=== PATIENT | female | born 2005 | race Caucasian/White ===

== ENCOUNTER 2025-03-19 09:48 | Inpatient (IN) | payer OTHER, SELFPAY ==
--- NOTE | ~2025-03-19 | CT_ITS ---
EXAMINATION: CT abdomen pelvis w con DATE: 03/19/2025 11:53 INDICATION: Abdominal pain TECHNIQUE: Computed tomography (CT) of the abdomen and pelvis was performed without intravenous contr ast. Automated exposure control and iterative reconstruction technique were employed. The dose-length product was 366.51 mGy-cm. COMPARISON: None FINDINGS: Minimal atelectasis in the dependent left lower lobe. Heart size is normal. No pericardial or pleural effusion. Diffuse mild periportal edema. Decompressed gallbladder is unremarkable. Splenomegaly carina uring 17.1 cm. Pancreas, bilateral adrenal glands and kidneys are normal. Bladder is normal. T-shaped IUD in expected position within the anteverted uterus. Bilateral adnexa are unremarkable. No bowel o bstruction. There is subtle stranding in the fat about the tip the cecum and the base of the appendix which measures 9 mm diameter raising some suspicion for acute appendicitis. Small amount of likely p hysiologic free fluid in the cul-de-sac. No abscess or free intraperitoneal gas. No pathologically en larged abdominal or pelvic lymphadenopathy. IMPRESSION: 1. Diffuse periportal edema in the liver which could be seen with hepatitis, ascending cholangitis, p yelonephritis, heart failure and aggressive volume resuscitation. 2. Minimal stranding at the tip the cecum and base of the appendix which measures up to 8-9 mm which raises some suspicion for but is not definitive for acute appendicitis. Dr. Izaguirre discussed this a nd the above findings with Dr. Abad at 12:10 PM. 3. Nonspecific splenomegaly measuring 17.1 cm craniocaudally. 4. T-shaped IUD in expected position within the anteverted uterus. Reviewed, dictated and finalized at location A. IMPRESSION: 1. Diffuse periportal edema in the liver which could be seen with hepatitis, as cending cholangitis, pyelonephritis, heart failure and aggressive volume resusc itation. 2. Minimal stranding at the tip the cecum and base of the appendix which measur es up to 8-9 mm which raises some suspicion for but is not definitive for acute appendicitis. Dr. Izaguirre discussed this and the above findings with Dr. Abad at 12:10 PM. 3. Nonspecific splenomegaly measuring 17.1 cm craniocaudally. 4. T-shaped IUD in expected position within the anteverted uterus.
--- NOTE | ~2025-03-19 | US_ITS ---
Limited ABDOMINAL ULTRASOUND (Doppler ultrasound interrogation techniques used as needed for this exa m.) Ordering provider: Dulce Maria Abad APRN History: . jaundiced RUQ pain . Comparison: None. FINDINGS: PANCREAS: Normal echotexture and size of the visualized portion. PORTAL VEIN: Hepatopedal flow demonstrated. Portal vein measures 1.3 cm. LIVER: Normal size and echotexture. Measures 15.3 cm. No focal hepatic lesions or perihepatic fluid c ollections are identified. BILIARY DUCTS: No intra or extrahepatic biliary dilation. Common bile duct measures 3.4 mm in diamete r which is normal for patient's age. GALLBLADDER: Contracted. Normal. No stones, sludge, gallbladder wall thickening or pericholecystic fl uid. The wall thickness is 2 mm. Negative sonographic Iyer's sign. IVC: Patent. FREE FLUID: None visualized within the upper abdomen. IMPRESSION: normal limited abdominal ultrasound. Reviewed, dictated and finalized at location A.
--- NOTE | ~2025-03-19 | MR_ITS ---
EXAMINATION: MR MRCP. Con/w 3D wo ind DATE: 03/20/2025 13:12 INDICATION: Elevated liver enzymes TECHNIQUE: Magnetic resonance imaging (MRI) of the abdomen was performed without and with 12 mL Multi lion intravenous contrast. Sequences included coronal T2-weighted SS-FSE, coronal T2-weighted FS SS- FSE, coronal T2-weighted FS FIESTA, axial T2-weighted FS FIESTA, axial T2-weighted FIESTA, sagittal T 2-weighted SS-FSE, axial T1-weighted dual-echo FSPGR, axial T2-weighted SS-FSE, axial T1-weighted LAV A, axial T2-weighted STIR FSE. Thick-slab T2-weighted FRFSE-XL images were obtained for magnetic reso nance cholangiopancreatography (MRCP). Rotating maximum intensity projection 3-D reconstructions of t he volumetric data were created by the technologist. Postcontrast sequences included a time course of axial T1-weighted LAVA. COMPARISON: CT and ultrasound both dated 03/19/2025. FINDINGS: ABDOMEN MRI: None of the injected intravenous contrast is evident in the organs of the abdomen on the post contras t imaging suggesting extravasation at the site of injection. Heart size is normal. No pericardial or pleural effusion. Again seen is mild periportal edema. The fernanda hepatis and extending most prominent ly into the right hepatic lobe. No hepatic lesions identified. Gallbladder is completely decompressed . The main portal vein is at the upper limits of normal measuring up to 1.4 cm in diameter. (6 spleno megaly measuring up to 16.7 cm craniocaudal length which along with a mild dilation the main portal v ein could be due to portal venous hypertension.. Pancreas, bilateral adrenal glands and kidneys are n ormal. Visualized bowels are unremarkable. No pathologically enlarged abdominal lymphadenopathy. Mild lumbar levocurvature. Normal bone marrow signal throughout. ABDOMEN MRCP: Common bile duct is normal in caliber measuring up to 3 mm in maximal diameter and tapering smoothly in the distal duct. No choledocholithiasis. No dilation of intrahepatic biliary tree or main pancreat ic duct. IMPRESSION: 1. Nonspecific periportal edema with differential as previously detailed. 2. Nonspecific splenomegaly measuring up to 16.7 cm and borderline dilation of the main portal vein m easuring up to 1.4 cm, both findings which can be seen in setting of portal venous hypertension. Reviewed, dictated and finalized at location A. IMPRESSION: 1. Nonspecific periportal edema with differential as previously detailed. 2. Nonspecific splenomegaly measuring up to 16.7 cm and borderline dilation of the main portal vein measuring up to 1.4 cm, both findings which can be seen in setting of portal venous hypertension.
--- NOTE | ~2025-03-19 | US_ITS ---
EXAMINATION: US retroperitoneal duplex ltd DATE: 03/20/2025 17:11 INDICATION: Portal hypertension. Rule out thrombosis. TECHNIQUE: Multiple grayscale, color Doppler, and pulsed Doppler images of the splenic and portal vei ns, hepatic artery and hepatic veins were obtained. COMPARISON: None. FINDINGS: Normal directional flow with normal portal venous waveforms in the splenic, main, left and right port al veins. The main portal vein is dilated to 1.5 cm. No evident portal venous thrombosis. Normal dire ctional flow and arterial waveform with brisk systolic upstroke at the hepatic artery. Normal directi onal flow and hepatic venous waveforms in the left, right and middle hepatic veins. IMPRESSION: 1. Mildly dilated main portal vein which can be seen with portal venous hypertension. Otherwise norm al duplex Doppler study of the hepatic and portal veins with normal directional flow and waveforms an d no evident thrombosis. Reviewed, dictated and finalized at location A. IMPRESSION: 1. Mildly dilated main portal vein which can be seen with portal venous hypert ension. Otherwise normal duplex Doppler study of the hepatic and portal veins w ith normal directional flow and waveforms and no evident thrombosis.
--- OUTSIDE RECORDS SUMMARY | 2025-03-19 09:53 | XMS_ITS | Encounter Summary ---
Author Organization [facility] Address [address] [place] [address] Care Team Providers Care Superintendent Plant Name Role Phone Prabha Jaime MD Primary Care Provider [phone] Reason for Visit * Reason Onset Date Comments Results 03/20/2020 Please give mom a call with lab results. Encounter Details Date Type Department Care Team (Late st Contact Info) Description 03/20/[address] 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 No / Unsure 03/18/2020 9:56 AM CDT documented as of this encounter Plan of Treatment Not on file documented as of this encounter Visit Diagnoses Not on filedocumented in this encounter Care Teams Superintendent Plant Relationship Specialty Start Date End Date Prabha Jaime MD [address] [id number] PCP - General Pediatrics 08/18/12 documented as of this encounter
--- OUTSIDE RECORDS SUMMARY | 2025-03-19 09:53 | XMS_ITS | Clinical Summary ---
Author Organization [facility] Address [address] [place] [address] Care Team Providers Care Potato Pancake Frier Name Role Phone Prabha Jaime MD Primary Care Provider [phone] Source Comments [facility],non-owned Affiliates and Associated Physician Practices is amultiple site organization consisting of ambulatory clinics and hospital sitesin [place], [place], [place] and [place]. This disclosure is being madepursuant to the Care Everywhere program and may not contain all information available regarding this patient. Last updated 18.[facility] Allergies No known active allergies Medications * Be aware that medications may not be up to date on this document. Alwaysverify current medications with the patient. No known medications Active Problems Problem Noted Date Diagnosed Date Hyperthyroidism 08/19/2012 Overview (07/04/2013): She developed congestion and malaise in mid-07/18, then otalgia. On 08/09/12, her property technician found acute otitis media and incidentally an enlarged thyroid, with free T4 2.5 (nl 0.9-1.6) and TSH <0.01. We saw her shortly after and suggested observation, as she was asymptomatic. However, on 09/18/12, her T4 was 13.9, T3 312, and TSH <0.05, thyroglobulin and thyroid peroxidase antibodies markedly elevated, and resting heart rate at her PCP's office was 120, so we recommended methimazole 10 mg once daily, but reduced the dose to 5 mg once daily. Thyroid levels were normal on this dose in 01/16. Assessment & Plan (04/20/2023 12:39 PM CDT): History of autoimmune hyperthyroidism, in remission (stopped methimazole February 02, 2015), remains clinically euthyroid. No other comorbid autoimmune conditions. 1. Orders Placed This Encounter TSH Order Specific Question: Release to patient Answer: Immediate T4 TOTAL Order Specific Question: Release to patient Answer: Immediate 2. Follow up by telephone (family telephone: [phone]) with laboratory results 3. Reviewed signs/symptoms of hyperthyroidism 4. Annual serum TSH and T4 levels 5. Return appointment in 1-2 years. Assessment & Plan (03/23/2022 12:21 PM CDT): History of Graves disease, in remission (February 02, 2015), clinically euthyroid. No other comorbid autoimmune conditions. 1. Orders Placed This Encounter TSH Order Specific Question: Release to patient Answer: Immediate T4 TOTAL Order Specific Question: Release to patient Answer: Immediate 2. Follow up by telephone (family telephone: [phone]) with laboratory results 3. Reviewed signs/symptoms of Graves disease 4. Reviewed risks of developing other autoimmune diseases (including type 1 diabetes mellitus) 5. Expectant observation 6. Return visit in one year, sooner if problems develop. Assessment & Plan (07/04/2013 1:47 PM CDT): 1) continue Methimazole 5mg daily 2) check thyroid function today 3) return in [address] 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 Gender Identity Not on file Sexual Orientation Not on file Last Filed Vital Signs Vital Sign Reading Time Taken Comments Blood Pressure 100/72 04/19/2023 1:56 PM CDT Pulse 86 04/19/2023 1:56 PM CDT Temperature - - Respiratory Rate 16 04/19/2023 1:56 PM CDT Oxygen Saturation - - Inhaled Oxygen Concentration - - Weight 58.9 kg (129 lb 13.6 oz) 04/19/2023 1:56 PM CDT Height 163.7 cm (5' 4.45) 04/19/2023 1:56 PM CD T Body Mass Index 21.98 04/19/2023 1:56 PM CDT Plan of Treatment Health Maintenance Due Date Last Done Comments HIV SCREENING 2018 HPV VACCINE (1 - 3-dose series) 2018 MENINGOCOCCAL (Group B) VACCINE SHARED DECISION-MAKING (1 of 2 - Standard) 2019 HEPATITIS C SCREENING 06/21/2021 DTAP/TDAP/TD VACCINES (1 - Tdap) 2022 HEPATITIS B VACCINE (1 of 3 - 19+ 3-dose series) 2022 CHLAMYDIA/GONORRHEA SCREENING 10/03/2022 10/03/2021 COVID-19 VACCINE ( - season) 2024 08/02/2021, 12/22/2020, 12/01/2020 PAP SMEAR 2024 DEPRESSION SCREENING 09/06/2024 03/23/2022 INFLUENZA VACCINE (#1) 2025 0, 07/14/2019, 06/24/2018, Additional history exists ZOSTER VACCINE (1 of 2) 2053 HIB VACCINE Aged Out No longer eligi ble based on patient's age to complete this topic MENINGOCOCCAL GROUPS A/C/Y/W VACCINE Aged Out No longer eligible based on patient's age to complete this topic PNEUMOCOCCAL VACCINE Aged Out No long er eligible based on patient's age to complete this topic Procedures Procedure Name Priority Date/Time Associated Diagnosis Comments CHLAMYDIA + GC + TRICH DNA AMPL Routine 10/03/2021 2:18 PM TWISTING DEPARTMENT END FINDER Encounter for insertion of mirena IUD from Last 3 Months or Most Recently Relevant to Health Maintenance Results * CHLAMYDIA + GC + TRICH DNA AMPL (10/03/2021 2:18 PM TWISTING DEPARTMENT END FINDER) Chlamydia trachomatis NILSON Negative Negative [facility] ACCOUNT B[facility] GC DNA Probe Negative Negative [facility] Trichomonas vaginalis by NILSON Negative Negative [facility]OUNT [facility] Microbiology ENTIRE ENDOCERVIX / Unknown 10/03/2021 2:18 PM TWISTING DEPARTMENT END FINDER 10/03/2021 Narrative Resulting Agency Comment Lab Testing performed at: [address] [id number] Lois Spicer MD LAB - MICROBIOLOGY ORDERABLES Final Result [facility] ACCOUNT BILL [id number] [place] [address] from Last 3 Months or Most Recently Relevant to Health Maintenance Insurance [facility] Care Teams Potato Pancake Frier Relationship Specialty Start Date End Date Prabha Jaime MD [address] [facility] [address] [place] [address] PCP - General Pediatrics 08/18/12
[2025-03-19 09:55] VITALS: BP 132/81; PULSE 97; RESP 16; TEMP 36.8; O2SAT 100
--- NOTE | 2025-03-19 10:17 | ED_ITS ---
HPI - General Adult General Chief complaint: Abdominal Pain <Dulce Maria Patterson January, Last Filed: 03/19/25 16:22> Stated complaint: fatigue, yellow color, RUQ pain <Dulce Maria Patterson January, Last Filed: 03/19/25 16:22> Time Seen by Provider: 03/19/25 09:51 <Dulce Maria Patterson January, - Last Filed: 03/19/25 16:22> History of Present Illness HPI narrative: Champ Asencio is a 19-year-old female who presents with reports of feeling increased fatigue it and noticed some yellowing to her skin over the past 3-4 months and some intermittent right upper quadrant pain for the past month. She has not noticed anything that brings on the pain. She states that it kind of comes out of nowhere she has had some nausea but no vomiting. She states that when the pain comes on it will last all day but then the next day she feels okay. She reports that she has never really had normal bowel movements are usually just soft. <Dulce Maria Patterson January, - Last Filed: 03/19/25 16:22> Related Data Allergies/adverse reactions: Allergies Allergy/AdvReac Type Severity Reaction Status Date / Time No Known Allergies Allergy Verified 03/19/25 10:07 <Dulce Maria Patterson January, Last Filed: 03/19/25 16:22> Review of Systems 2 Review of Systems: All systems reviewed & are unremarkable except as noted in HPI and below <Dulce Maria Patterson January, - Last Filed: 03/19/25 16:22> Exam 2 Narrative: GENERAL: Well-appearing, well-nourished, and in no acute distress. HEAD: Normocephalic, atraumatic. EYES: PERRLA and EOMI. + Icteric ENT: Nares clear, no rhinorrhea or epistaxis. Mucous membranes moist. Oropharynx without tonsillar hypertrophy exudate or other lesions. NECK: Supple. No adenopathy or masses. No carotid bruits or JVD CHEST: Clear to auscultation. No respiratory distress. No wheezes rales or rhonchi HEART: Regular rate and rhythm. No murmur heard. Normal peripheral pulses. ABDOMEN: Soft, nondistended, normal active bowel sounds. + pain to the RUQ with palpation and some mild pain to the generalized abdomen. EXTREMITIES: Normal range of motion. No edema. SKIN: Warm, dry, no rash. NEURO: No focal deficits. Alert and oriented x3. PSYCH: Normal mood and affect. <Dulce Maria Abad APRN - Last Filed: 03/19/25 16:22> Course GOLF CART ATTENDANT/PA Physician Supervision I agree with midlevel documentation; I performed the medical decision making component of this evaluation. <Minerva Noble MD - Last Filed: 03/19/25 16:28> Vital Signs Vital signs: Vital Signs Temperature 98.3 F 03/19/25 09:55 Pulse Rate 97 03/19/25 09:55 Respiratory Rate 16 03/19/25 09:55 Blood Pressure 132/81 03/19/25 09:55 Pulse Oximetry 100 03/19/25 09:55 Oxygen Delivery Room Air 03/19/25 09:55 Temperature 98.3 F 03/19/25 09:55 Pulse Rate 79 03/19/25 15:00 Respiratory Rate 16 03/19/25 15:00 Blood Pressure 114/64 03/19/25 15:00 Pulse Oximetry 100 03/19/25 15:00 Oxygen Delivery Room Air 03/19/25 09:55 <Dulce Maria Abad MARKET RELATIONSHIP MANAGER - Last Filed: 03/19/25 16:22> Vital Signs Temperature 98.3 F 03/19/25 09:55 Pulse Rate 97 03/19/25 09:55 Respiratory Rate 16 03/19/25 09:55 Blood Pressure 132/81 03/19/25 09:55 Pulse Oximetry 100 03/19/25 09:55 Oxygen Delivery Room Air 03/19/25 09:55 Temperature 98.3 F 03/19/25 09:55 Pulse Rate 79 03/19/25 15:00 Respiratory Rate 16 03/19/25 15:00 Blood Pressure 114/64 03/19/25 15:00 Pulse Oximetry 100 03/19/25 15:00 Oxygen Delivery Room Air 03/19/25 09:55 <Minerva Noble MD - Last Filed: 03/19/25 16:28> Medical Decision Making MDM Narrative Medical decision making narrative: 19 y/o with reports of noticing some yellowing of her skin over the past 2-3 months and now having some RUQ pain intermittently over the past month. Denies any pain currently Exam is consistent with scleral icterus, + RUQ pain with palpation and mild generalized abdominal pain Concern for : cholelithiasis / obstructing cholelithiasis / malignancy / cholecystitis / plan to check labs / CT and US CBC-white blood cells 3.8, RBCs 3.039 hemoglobin 10, hematocrit 30.5, platelets 127-pancytopenia CMP-bicarb 20, calcium 7.8, bilirubin 6.6, AST 926, ALT 564, alk-phos 140, total protein 10.3, albumin 3.2 Lipase-309 UA-positive bilirubin 2+ Urine preg-negative CT abd/pelv - 1. Diffuse periportal edema in the liver which could be seen with hepatitis, ascending cholangitis, pyelonephritis, heart failure and aggressive volume resuscitation. 2. Minimal stranding at the tip the cecum and base of the appendix which measures up to 8-9 mm which raises some suspicion for but is not definitive for acute appendicitis. Dr. Izaguirre discussed this and the above findings with Dr. Abad at 12:10 PM. 3. Nonspecific splenomegaly measuring 17.1 cm craniocaudally. 4. T-shaped IUD in expected position within the anteverted uterus. CT US- normal limited abdominal ultrasound. normal limited abdominal ultrasound. Collaborated with Dr. Noble who recommends adding on Hepatic panel and consult with GI Based on the presentation and the lab work and a CT finding was consulted with extrusion press adjuster specialist Dr. Tripathi who recommends MRCP for further evaluation of the cause of these findings. In the setting of patient still having some right upper quadrant pain and the abnormal lab values plan to admit for the MRCP to the hospitalist with Dr. Tripathi for consultation he states he will see the patient tomorrow and in- patient Talked with Hospitalist Stephie who accepts pt for admission and plans to start empirical treatment for ascending cholangitis with IV Zosyn Patient and her family updated on findings and plan of care and denied have any further questions or concerns at this time <Dulce Maria Abad, MARKET RELATIONSHIP MANAGER - Last Filed: 03/19/25 16:22> Vital Signs Vital Signs: Vital Signs Temperature 98.3 F 03/19/25 09:55 Pulse Rate 97 03/19/25 09:55 Respiratory Rate 16 03/19/25 09:55 Blood Pressure 132/81 03/19/25 09:55 Pulse Oximetry 100 03/19/25 09:55 Oxygen Delivery Room Air 03/19/25 09:55 Temperature 98.3 F 03/19/25 09:55 Pulse Rate 79 03/19/25 15:00 Respiratory Rate 16 03/19/25 15:00 Blood Pressure 114/64 03/19/25 15:00 Pulse Oximetry 100 03/19/25 15:00 Oxygen Delivery Room Air 03/19/25 09:55 Vitals reviewed by me <Dulce Maria Abad APRN - Last Filed: 03/19/25 16:22> Vital Signs Temperature 98.3 F 03/19/25 09:55 Pulse Rate 97 03/19/25 09:55 Respiratory Rate 16 03/19/25 09:55 Blood Pressure 132/81 03/19/25 09:55 Pulse Oximetry 100 03/19/25 09:55 Oxygen Delivery Room Air 03/19/25 09:55 Temperature 98.3 F 03/19/25 09:55 Pulse Rate 79 03/19/25 15:00 Respiratory Rate 16 03/19/25 15:00 Blood Pressure 114/64 03/19/25 15:00 Pulse Oximetry 100 03/19/25 15:00 Oxygen Delivery Room Air 03/19/25 09:55 <Minerva Noble MD - Last Filed: 03/19/25 16:28> Lab Data Lab results reviewed: Yes I reviewed the patient's lab results. <Dulce Maria Abad APRN - Last Filed: 03/19/25 16:22> Result diagrams: 03/19/25 10:19 03/19/25 10:19 <Dulce Maria Abad APRN - Last Filed: 03/19/25 16:22> Labs: Lab Results 03/19/25 03/19/25 03/19/25 Range/Units 10:15 10:16 10:18 WBC (4.5-10.0) K/mm3 RBC (4.2-5.4) M/mm3 Hgb (12.0-15.0) g/dL Hct (37.0-47.0) % MCV (80-100) fl MCH (26-34) pg MCHC (32-36) g/dl RDW (11.5-14.5) % Plt Count (150-375) k/mm3 MPV (7.4-10.4) fl Immature Gran % (Auto) (0-0.5) % Neut % (Auto) (45.5-73.1) % Lymph % (Auto) (18.3-44.2) % [place] % (Auto) (2.6-8.5) % Eos % (Auto) (0-4.4) % Baso % (Auto) (0.2-1.2) % Lymph # (Auto) (0.9-3.2) K/mm3 Childress # (Auto) (0.1-0.6) K/mm3 Eos # (Auto) (0-0.3) K/mm3 Baso # (Auto) (0.0-0.1) K/mm3 Abs Immat Gran (auto) (0.00-0.031) K/mm3 Absolute Neuts (auto) (1.3-6.7) K/mm3 Absolute Nucleated RBC (0.0-0.012) K/mm3 Nucleated RBC % (0.0-0.2) % Sodium (137-145) mmol/L Potassium (3.4-5.0) mmol/L Chloride (98-107) mmol/L Carbon Dioxide (22-30) mmol/L Anion Gap (4-12) mmol/L BUN (7-17) mg/dL Creatinine (0.7-1.0) mg/dL Estim Creat Clear Calc ml/min Estimated GFR (59 - ) Glucose (65-110) mg/dL Calcium (8.4-10.2) mg/dL Total Bilirubin (0.2-1.3) mg/dL AST (14-36) U/L ALT (6-35) U/L Alkaline Phosphatase (38-126) U/L Total Protein (6.3-8.2) g/dL Albumin (3.5-5.1) g/dL Lipase (23-300) U/L Urine Color Dark yellow (Yellow) Urine Appearance Clear (Clear) Urine pH 5.0 (5.0-9.0) Ur Specific [place] 1.017 (1.001-1.035) Urine Protein Negative (Negative) mg/dL Urine Glucose (UA) Negative (Negative) mg/dL Urine Ketones Negative (Negative) mg/dL Ur Blood (Man) Negative (Negative) Urine Nitrate Negative (Negative) Urine Bilirubin 2+ H (Negative) Urine Urobilinogen 1.0 (<2.0) mg/dL Leukocyte Esterase Rfl Negative (Negative) CK/UL POC Urine HCG, Qual Negative (Negative) Hepatitis A IgM Ab Negative (Negative) Hep Bs Antigen Negative (Negative) Hep B Core IgM Ab Negative (Negative) Hepatitis C Ab Screen Negative (Negative) 03/19/25 Range/Units 10:19 WBC 3.8 L (4.5-10.0) K/mm3 RBC 3.03 L (4.2-5.4) M/mm3 Hgb 10.0 L (12.0-15.0) g/dL Hct 30.5 L (37.0-47.0) % MCV 100.7 H (80-100) fl MCH 33.0 (26-34) pg MCHC 32.8 (32-36) g/dl RDW 16.1 H (11.5-14.5) % Plt Count 127 L (150-375) k/mm3 MPV 10.1 (7.4-10.4) fl Immature Gran % (Auto) 0.3 (0-0.5) % Neut % (Auto) 54.6 (45.5-73.1) % Lymph % (Auto) 25.7 (18.3-44.2) % Childress % (Auto) 8.5 (2.6-8.5) % Eos % (Auto) 9.8 H (0-4.4) % Baso % (Auto) 1.1 (0.2-1.2) % Lymph # (Auto) 0.97 (0.9-3.2) K/mm3 Childress # (Auto) 0.3 (0.1-0.6) K/mm3 Eos # (Auto) 0.4 H (0-0.3) K/mm3 Baso # (Auto) 0.0 (0.0-0.1) K/mm3 Abs Immat Gran (auto) 0.01 (0.00-0.031) K/mm3 Absolute Neuts (auto) 2.1 (1.3-6.7) K/mm3 Absolute Nucleated RBC 0.000 (0.0-0.012) K/mm3 Nucleated RBC % 0.0 (0.0-0.2) % Sodium 138 (137-145) mmol/L Potassium 3.9 (3.4-5.0) mmol/L Chloride 111 H (98-107) mmol/L Carbon Dioxide 20 L (22-30) mmol/L Anion Gap 7 (4-12) mmol/L BUN 8 (7-17) mg/dL Creatinine 0.65 L (0.7-1.0) mg/dL Estim Creat Clear Calc 101 ml/min Estimated GFR > 60 (59 - ) Glucose 107 (65-110) mg/dL Calcium 7.8 L (8.4-10.2) mg/dL Total Bilirubin 6.6 H (0.2-1.3) mg/dL AST 926 H (14-36) U/L ALT 564 H (6-35) U/L Alkaline Phosphatase 140 H (38-126) U/L Total Protein 10.3 H (6.3-8.2) g/dL Albumin 3.2 L (3.5-5.1) g/dL Lipase 309 H (23-300) U/L Urine Color (Yellow) Urine Appearance (Clear) Urine pH (5.0-9.0) Ur Specific [place] (1.001-1.035) Urine Protein (Negative) mg/dL Urine Glucose (UA) (Negative) mg/dL Urine Ketones (Negative) mg/dL Ur Blood (Man) (Negative) Urine Nitrate (Negative) Urine Bilirubin (Negative) Urine Urobilinogen (<2.0) mg/dL Leukocyte Esterase Rfl (Negative) CK/UL POC Urine HCG, Qual (Negative) Hepatitis A IgM Ab (Negative) Hep Bs Antigen (Negative) Hep B Core IgM Ab (Negative) Hepatitis C Ab Screen (Negative) <Dulce Maria Abad, MARKET RELATIONSHIP MANAGER - Last Filed: 03/19/25 16:22> Lab Results 03/19/25 03/19/25 03/19/25 Range/Units 10:15 10:16 10:18 WBC (4.5-10.0) K/mm3 RBC (4.2-5.4) M/mm3 Hgb (12.0-15.0) g/dL Hct (37.0-47.0) % MCV (80-100) fl MCH (26-34) pg MCHC (32-36) g/dl RDW (11.5-14.5) % Plt Count (150-375) k/mm3 MPV (7.4-10.4) fl Immature Gran % (Auto) (0-0.5) % Neut % (Auto) (45.5-73.1) % Lymph % (Auto) (18.3-44.2) % Childress % (Auto) (2.6-8.5) % Eos % (Auto) (0-4.4) % Baso % (Auto) (0.2-1.2) % Lymph # (Auto) (0.9-3.2) K/mm3 [place] # (Auto) (0.1-0.6) K/mm3 Eos # (Auto) (0-0.3) K/mm3 Baso # (Auto) (0.0-0.1) K/mm3 Abs Immat Gran (auto) (0.00-0.031) K/mm3 Absolute Neuts (auto) (1.3-6.7) K/mm3 Absolute Nucleated RBC (0.0-0.012) K/mm3 Nucleated RBC % (0.0-0.2) % Sodium (137-145) mmol/L Potassium (3.4-5.0) mmol/L Chloride (98-107) mmol/L Carbon Dioxide (22-30) mmol/L Anion Gap (4-12) mmol/L BUN (7-17) mg/dL Creatinine (0.7-1.0) mg/dL Estim Creat Clear Calc ml/min Estimated GFR (59 - ) Glucose (65-110) mg/dL Calcium (8.4-10.2) mg/dL Total Bilirubin (0.2-1.3) mg/dL AST (14-36) U/L ALT (6-35) U/L Alkaline Phosphatase (38-126) U/L Total Protein (6.3-8.2) g/dL Albumin (3.5-5.1) g/dL Lipase (23-300) U/L Urine Color Dark yellow (Yellow) Urine Appearance Clear (Clear) Urine pH 5.0 (5.0-9.0) Ur Specific [place] 1.017 (1.001-1.035) Urine Protein Negative (Negative) mg/dL Urine Glucose (UA) Negative (Negative) mg/dL Urine Ketones Negative (Negative) mg/dL Ur Blood (Man) Negative (Negative) Urine Nitrate Negative (Negative) Urine Bilirubin 2+ H (Negative) Urine Urobilinogen 1.0 (<2.0) mg/dL Leukocyte Esterase Rfl Negative (Negative) CK/UL POC Urine HCG, Qual Negative (Negative) Hepatitis A IgM Ab Negative (Negative) Hep Bs Antigen Negative (Negative) Hep B Core IgM Ab Negative (Negative) Hepatitis C Ab Screen Negative (Negative) 03/19/25 Range/Units 10:19 WBC 3.8 L (4.5-10.0) K/mm3 RBC 3.03 L (4.2-5.4) M/mm3 Hgb 10.0 L (12.0-15.0) g/dL Hct 30.5 L (37.0-47.0) % MCV 100.7 H (80-100) fl MCH 33.0 (26-34) pg MCHC 32.8 (32-36) g/dl RDW 16.1 H (11.5-14.5) % Plt Count 127 L (150-375) k/mm3 MPV 10.1 (7.4-10.4) fl Immature Gran % (Auto) 0.3 (0-0.5) % Neut % (Auto) 54.6 (45.5-73.1) % Lymph % (Auto) 25.7 (18.3-44.2) % [place] % (Auto) 8.5 (2.6-8.5) % Eos % (Auto) 9.8 H (0-4.4) % Baso % (Auto) 1.1 (0.2-1.2) % Lymph # (Auto) 0.97 (0.9-3.2) K/mm3 [place] # (Auto) 0.3 (0.1-0.6) K/mm3 Eos # (Auto) 0.4 H (0-0.3) K/mm3 Baso # (Auto) 0.0 (0.0-0.1) K/mm3 Abs Immat Gran (auto) 0.01 (0.00-0.031) K/mm3 Absolute Neuts (auto) 2.1 (1.3-6.7) K/mm3 Absolute Nucleated RBC 0.000 (0.0-0.012) K/mm3 Nucleated RBC % 0.0 (0.0-0.2) % Sodium 138 (137-145) mmol/L Potassium 3.9 (3.4-5.0) mmol/L Chloride 111 H (98-107) mmol/L Carbon Dioxide 20 L (22-30) mmol/L Anion Gap 7 (4-12) mmol/L BUN 8 (7-17) mg/dL Creatinine 0.65 L (0.7-1.0) mg/dL Estim Creat Clear Calc 101 ml/min Estimated GFR > 60 (59 - ) Glucose 107 (65-110) mg/dL Calcium 7.8 L (8.4-10.2) mg/dL Total Bilirubin 6.6 H (0.2-1.3) mg/dL AST 926 H (14-36) U/L ALT 564 H (6-35) U/L Alkaline Phosphatase 140 H (38-126) U/L Total Protein 10.3 H (6.3-8.2) g/dL Albumin 3.2 L (3.5-5.1) g/dL Lipase 309 H (23-300) U/L Urine Color (Yellow) Urine Appearance (Clear) Urine pH (5.0-9.0) Ur Specific [place] (1.001-1.035) Urine Protein (Negative) mg/dL Urine Glucose (UA) (Negative) mg/dL Urine Ketones (Negative) mg/dL Ur Blood (Man) (Negative) Urine Nitrate (Negative) Urine Bilirubin (Negative) Urine Urobilinogen (<2.0) mg/dL Leukocyte Esterase Rfl (Negative) CK/UL POC Urine HCG, Qual (Negative) Hepatitis A IgM Ab (Negative) Hep Bs Antigen (Negative) Hep B Core IgM Ab (Negative) Hepatitis C Ab Screen (Negative) <Minerva Noble MD - Last Filed: 03/19/25 16:28> Imaging Data Radiologist's impression: Impressions Abdomen/Pelvis CT 03/19/25 12:04 IMPRESSION: 1. Diffuse periportal edema in the liver which could be seen with hepatitis, ascending cholangitis, pyelonephritis, heart failure and aggressive volume resuscitation. 2. Minimal stranding at the tip the cecum and base of the appendix which measures up to 8-9 mm which raises some suspicion for but is not definitive for acute appendicitis. Dr. Izaguirre discussed this and the above findings with Dr. Abad at 12:10 PM. 3. Nonspecific splenomegaly measuring 17.1 cm craniocaudally. 4. T-shaped IUD in expected position within the anteverted uterus. Abdomen Ultrasound 03/19/25 12:32 IMPRESSION: normal limited abdominal ultrasound. <Dulce Maria Abad APRN - Last Filed: 03/19/25 16:22> Discharge Plan Discharge Clinical Impression: Elevated liver enzymes, Elevated bilirubin, Pancytopenia <Dulce Maria Abad APRN - Last Filed: 03/19/25 16:22> Patient Disposition: Still a Patient <Dulce Maria Abad APRN - Last Filed: 03/19/25 16:22> Condition: Stable <Dulce Maria Abad APRN - Last Filed: 03/19/25 16:22> Time of Disposition: 16:21 <Dulce Maria Abad APRN - Last Filed: 03/19/25 16:22> 16:21 <Minerva Noble MD - Last Filed: 03/19/25 16:28>
[2025-03-19 10:24] LABS: BEDSIDEPREGUCG Negative (Negative)
[2025-03-19 10:28] LABS: Hematocrit 30.5 % (37.0-47.0); Hemoglobin 10.0 g/dL (12.0-15.0); Immature Granulocyte Percent A 0.3 % (0-0.5); Lymphocytes Absolute Auto 0.97 K/mm3 (0.9-3.2); Mean Corpuscular HGB Conc 32.8 g/dl (32-36); Mean Corpuscular Hemoglobin 33.0 pg (26-34); Mean Corpuscular Volume 100.7 fl (80-100); Nucleated Red Blood Cells Absolute Auto 0.000 K/mm3 (0.0-0.012); Nucleated Red Blood Cells Perc 0.0 % (0.0-0.2); Platelet Count Result 127 k/mm3 (150-375); Red Blood Count 3.03 M/mm3 (4.2-5.4); White Blood Count 3.8 K/mm3 (4.5-10.0)
[2025-03-19 10:30] LABS: Add Urine Microscopic? YES; Appearance Urine Clear (Clear); Glucose Urine UA Negative (Negative); Leukocyte Esterase Ur Negative LEU/UL (Negative); Nitrate Urine Negative (Negative); Specific Grav Ur 1.017 (1.001-1.035)
--- OUTSIDE RECORDS SUMMARY | 2025-03-19 10:42 | XMS_ITS | Clinical Summary ---
Author Organization [facility] Address [address] [facility] [place] [address] Care Team Providers Care Studio Couch Frame Builder Name Role Phone Prabha Jaime MD Primary Care Provider [phone] Source Comments [facility],non-owned Affiliates and Associated Physician Practices is amultiple site organization consisting of ambulatory clinics and hospital sitesin [place], [place], [place] and [place]. This disclosure is being madepursuant to the Care Everywhere program and may not contain all information available regarding this patient. Last updated 18.[facility] [employer] Allergies No known active allergies Medications * Be aware that medications may not be up to date on this document. Alwaysverify current medications with the patient. No known medications Active Problems Problem Noted Date Diagnosed Date Hyperthyroidism 08/19/2012 Overview (07/04/2013): She developed congestion and malaise in mid-07/18, then otalgia. On 08/09/12, her bull wheel worker found acute otitis media and incidentally an [...] 2. Follow up by telephone (family telephone: [phone]) with laboratory results 3. Reviewed signs/symptoms of [...] 2. Follow up by telephone (family telephone: [phone]) with laboratory results 3. Reviewed signs/symptoms of [...] on file Legal Sex Female 1:49 PM DIESEL LOCOMOTIVE ENGINEER Gender Identity Not on file Sexual [...] TRICH DNA AMPL Routine 10/03/2021 2:18 PM DIESEL LOCOMOTIVE ENGINEER Encounter for insertion of mirena IUD from Last 3 Months or Most Recently Relevant to Health Maintenance Results * CHLAMYDIA + GC + TRICH DNA AMPL (10/03/2021 2:18 PM DIESEL LOCOMOTIVE ENGINEER) Chlamydia trachomatis NILSON Negative Negative [facility] ACCOUNT BILL GC DNA Probe Negative Negative [facility] ACCOUNT BILL Trichomonas vaginalis by NILSON Negative Negative [facility] ACCOUNT BILL Microbiology ENTIRE ENDOCERVIX / Unknown 10/03/2021 2:18 PM DIESEL LOCOMOTIVE ENGINEER 10/03/2021 Narrative Resulting Agency Comment Lab Testing performed at: [address] [id number] Lois Spicer MD LAB - MICROBIOLOGY ORDERABLES Final Result [facility] ACCOUNT BILL [address] [place] [address] from Last 3 Months or Most Recently Relevant to Health Maintenance Insurance [facility] Care Teams Studio Couch Frame Builder Relationship Specialty Start Date End Date Prabha Jaime MD [address] [facility] [address] [place] [address] PCP - General Pediatrics 08/18/12
--- OUTSIDE RECORDS SUMMARY | 2025-03-19 10:42 | XMS_ITS | Encounter Summary ---
Author Organization [facility] Address [address] [facility] [place] [address] Care Team Providers Care Auto Rental Clerk Name Role Phone Prabha Jaime MD Primary Care Provider [phone] Reason for Visit * Reason Onset Date Comments Results 03/20/2020 Please give mom a call with lab results. Encounter Details Date Type Department Care Team (Late st Contact Info) Description 03/20/[address] [facility] - Endocrinology [address] [place] [id number] Gabriel Johnson MD [address] [place] [phone] Results (Please give mom a call with lab results.) Social History Tobacco Use Types Packs/Day Years Used Date Smoking Tobacco: Never Smokeless Tobacco: Never Alcohol Use Standard Drinks/Week Comments Not Asked 0 (1 standard drink = 0.6 oz pur e alcohol) Comments No Sex and Gender Information Value Date Recorded Sex Assigned at Not on file Legal Sex Female 1:49 PM INTELLIGENCE APPLICATIONS Gender Identity Not on file Sexual Orientation [...] on filedocumented in this encounter Care Teams Auto Rental Clerk Relationship Specialty Start Date End Date Prabha Jaime MD [address] [id number] PCP - General Pediatrics 08/18/12 documented as of this encounter
[2025-03-19 11:21] LABS: Alanine Aminotransferase 564 U/L (6-35); Albumin Level 3.2 g/dL (3.5-5.1); Alkaline Phosphatase 140 U/L (38-126); Anion Gap 7 mmol/L (4-12); Bilirubin,Total 6.6 mg/dL (0.2-1.3); Blood Urea Nitrogen 8 mg/dL (7-17); Calcium 7.8 mg/dL (8.4-10.2); Carbon Dioxide 20 mmol/L (22-30); Chloride 111 mmol/L (98-107); Estimated CRCL calculation 101 ml/min; Estimated Glomerular Filt Rate > 60; Glucose 107 mg/dL (65-110); Lipase 309 U/L (23-300); Potassium 3.9 mmol/L (3.4-5.0); Sodium 138 mmol/L (137-145); Total Protein 10.3 g/dL (6.3-8.2)
[2025-03-19 12:10] LABS: Aspartate Amino Transferase 926 U/L (14-36)
[2025-03-19 13:00] VITALS: BP 112/68; PULSE 80; RESP 16; O2SAT 100
--- NOTE | 2025-03-19 14:06 | P.HP_ITS ---
H&P: HPI History of Present Illness Date/Time: 03/19/25 14:06 Chief Complaint: Jaundice, Abdominal Pain Narrative: 19 y/o F with no significant PMH presents here with skin changes and abdominal pain. The patient presents here from home for further evaluation of yellowing of the skin and abdominal pain. She reports she noted that she has had skin changes and changes to her or sclera coloring over the last 3 to 4 months. Patient then developed intermittent right upper quadrant abdominal pain in the last month. This is accompanied by fatigue and nausea without vomiting. She describes the abdominal pain as sharp, upper right abdominal pain, radiation into her lower abdomen, intermittent with episodes lasting around 5 minutes, and no modifying factors patient is aware of. Has been taking Advil for the pain. She denies accompanying constipation, diarrhea, fever, chills, abdominal bloating. Denies history of IVDU or international travel. Initial VS at presentation: 98.3? F, HR 97, R 16, 132/81, and 100% on RA. ED workup showed: WBC 3.8, hemoglobin 10.0, platelet count 127, creatinine 0.65 and GFR >60, total bilirubin 6.6, AST 926, ALT 964, alk-phos 140, lipase 309, UA showed 2+ bilirubin otherwise unremarkable. CT showed diffuse periportal edema the liver which could be seen with hepatitis/ascending cholangitis/pyelonephritis/heart failure and aggressive volume resuscitation, minimal stranding at the tip of the cecum base of the appendix which raises some suspicion for acute appendicitis, nonspecific splenomegaly measuring 17.1 cm, and T shaped IUD in expected position. Abdominal US showed no stones/sludge/gallbladder thickening and negative Iyer sign. Review of Systems Review of Systems: All systems reviewed & are unremarkable except as noted in HPI and below [facility] Past Medical History Medical History (Updated 03/19/25 @ 21:29 by Stephie Sweeney APRN) GERD (gastroesophageal reflux disease) Anxiety ADHD Hyperthyroidism Social History Social History Smoking status: Never smoker Alcohol intake: never Substance use: never Do You Feel Safe in your Home?: Yes Lack of Transportation: No Lack of Food: Never True Current Housing: I Have Housing Concerned About Future Housing: No Difficulty Paying Gas/Electric Bills: No Difficulty Paying for Meds: No Currently Unemployed: No Education: High School Diploma/GED Difficulty w/ Childcare or Family Care: No Spiritual care concerns: No Meds Home Medications and Allergies Home Medications ?Medication ?Instructions ?Recorded ?Confirmed ?Type No Home Medications 03/19/25 03/19/25 History Allergies Allergy/AdvReac Type Severity Reaction Status Date / Time No Known Allergies Allergy Verified 03/19/25 10:07 Vital Signs Vital Signs - 24 hr 03/19/25 09:55 Temperature 98.3 F Pulse Rate 97 Respiratory Rate 16 Blood Pressure 132/81 Pulse Oximetry 100 Oxygen Delivery Room Air Exam Const: General: comfortable and no acute distress Other: , female, nontoxic appearance HENMT: Face/Nose/Sinus: Normal nares present Mouth: Yes moist mucous membranes Eyes: General: appearance normal, both eyes and all related structures Sclera: sclerae normal Pupils: Equal, round and reactive pupils present EOM: EOMs intact bilaterally Resp: Effort & Inspection: normal respiratory effort Auscultation: clear to auscultation bilaterally Cardio: Rate: regular rate Rhythm: regular rhythm Other: S1-S2 present without murmur, rub, ectopy GI: Other: Abdomen soft, nondistended. Mild tenderness in the right upper quadrant/diffuse. Normoactive bowel sounds in all quadrants. Skin: General skin exam: normal color and no rashes or lesions noted Wounds: no wounds Neuro: Speech: normal speech Motor exam (neuro): 5/5 motor strength present throughout Sensory Exam: normal sensation Other: A&O x4 Extrem: General: normal to inspection Psych: Mental Status: mental status grossly normal Affect: normal affect Other: Good insight and judgment, pleasant H&P: Results Labs Labs: Short CBC 03/19/25 Range/Units 10:19 WBC 3.8 L (4.5-10.0) K/mm3 Hgb 10.0 L (12.0-15.0) g/dL Hct 30.5 L (37.0-47.0) % Plt Count 127 L (150-375) k/mm3 BMP 03/19/25 10:19 Sodium 138 Potassium 3.9 Chloride 111 H Carbon Dioxide 20 L BUN 8 Creatinine 0.65 L Glucose 107 Calcium 7.8 L Liver Function 03/19/25 Range/Units 10:19 Total Bilirubin 6.6 H (0.2-1.3) mg/dL AST 926 H (14-36) U/L ALT 564 H (6-35) U/L Alkaline Phosphatase 140 H (38-126) U/L Albumin 3.2 L (3.5-5.1) g/dL Urine 03/19/25 Range/Units 10:16 Urine Color Dark yellow (Yellow) Urine Appearance Clear (Clear) Urine pH 5.0 (5.0-9.0) Ur Specific [place] 1.017 (1.001-1.035) Urine Protein Negative (Negative) mg/dL Urine Glucose (UA) Negative (Negative) mg/dL Assessment and Plan Assessment and plan (1) Elevated liver enzymes: Code(s): R74.8 - Abnormal levels of other serum enzymes Status: Acute Assessment and Plan: - CT abd/pelvis: 1. Diffuse periportal edema in the liver which could be seen with hepatitis, ascending cholangitis, pyelonephritis, heart failure and aggressive volume resuscitation. 2. Minimal stranding at the tip the cecum and base of the appendix which measures up to 8-9 mm which raises some suspicion for but is not definitive for acute appendicitis. Dr. Izaguirre discussed this and the above findings with Dr. Abad at 12:10 PM. 3. Nonspecific splenomegaly measuring 17.1 cm craniocaudally. 4. T-shaped IUD in expected position within the anteverted uterus. - check hepatitis panel -> negative - check bilirubin direct and indirect, EBV, CMV, RENO, HIV, ferritin, and HSV - started on Zosyn on 03/19 - low suspicion for heart failure, however patient reports that her brother was diagnosed with a congenital bicuspid valve and was told that she may need to be evaluated for this. will check echo. - GI consulted, suspect patient will need MRCP - General Surgery consulted for possible appendicitis, low suspicion as the patient does not have an lower abdominal pain/RLQ pain DDx: Viral/autoimmune induced hepatitis could also be hyper inflammatory synd andrew triggered by hyperferritinemia. Low suspicion for toxic or drug induced as the patient rarely takes medications due to her severe GERD. Less likely ischemic hepatitis as the patient does not appear septic and vital signs are stable. Will check for cardiac compromise via echo. Could have acute biliary disease, GI consult for possible MRCP. Lower suspicion for acute pancreatitis with secondary hepatocellular injury as the patient's lipase is only mildly elevated. Will check lipid panel. Ascending cholangitis, started on Zosyn. UA only showed 2+ bilirubin, low suspicion for UTI/pyelonephritis. (2) Elevated bilirubin: Code(s): R17 - Unspecified jaundice Status: Acute Assessment and Plan: - see above (3) Pancytopenia: Code(s): D61.818 - Other pancytopenia Status: Acute Assessment and Plan: - WBC 3.8, hemoglobin 10.0, platelet count 127 - differential includes EBV, CMV, HSV - monitor Plan Diet: regular, NPO at midnight GI Prophylaxis: NA DVT Prophylaxis: SCDs IV fluids: LR 100 mL/hr Lines/Tubes: Peripheral IV Code Status: Full code Quality VTE Prophylaxis VTE prophylaxis: mechanical ordered Hospitalist MIPS Advance Care Plan I have confirmed that the patient's Advanced Care Plan is present, code status is documented, or surrogate decision maker is listed in patient medical record.: Yes Medication Reconciliation I have utilized all available resources to obtain, update and review the patients current medications (includes all prescriptions, OTC, herbals, cannabis, and nutritional supplements).: Yes
[2025-03-19] MEDS: PIPERACILLIN/TAZOBACTAM SOD 3.375 GM in SODIUM CHLORIDE 0.9% IV 50 ML 100 ML IVPB ×2 (14:11→21:26)
[2025-03-19 14:36] LABS: Hepatitis B Surface Antigen Negative (Negative)
[2025-03-19 14:41] LABS: HAV RESULT Negative (Negative); Hepatitis B Core IgM Result Negative (Negative)
[2025-03-19 15:00] VITALS: BP 114/64; PULSE 79; RESP 16; O2SAT 100
--- OUTSIDE RECORDS SUMMARY | 2025-03-19 15:01 | XMS_ITS | Encounter Summary ---
Author Organization [facility] Address [address] [facility] [place] [address] Care Team Providers Care Licensed And Certified Midwife Name Role Phone Prabha Jaime MD Primary Care Provider [phone] Reason for Visit * Reason Onset Date Comments Results 03/20/2020 Please give mom a call with lab results. Encounter Details Date Type Department Care Team (Late st Contact Info) Description 03/20/2020 Telephone [facility] - Endocrinology [address] [place] [phone] Gabriel Johnson MD [address] [place] [phone] Results (Please give mom a call with lab results.) Social History Tobacco Use Types Packs/Day Years Used Date Smoking Tobacco: Never Smokeless Tobacco: Never Alcohol Use Standard Drinks/Week Comments Not Asked 0 (1 standard drink = 0.6 oz pur e alcohol) Comments No Sex and Gender Information Value Date Recorded Sex Assigned at Not on file Legal Sex Female 1:49 PM TECHNOLOGY DIRECTOR Gender Identity Not on file Sexual Orientation [...] on filedocumented in this encounter Care Teams Licensed And Certified Midwife Relationship Specialty Start Date End Date Prabha Jaime MD [address] [phone] PCP - General Pediatrics 08/18/12 documented as of this encounter
--- OUTSIDE RECORDS SUMMARY | 2025-03-19 15:01 | XMS_ITS | Clinical Summary ---
Author Organization [facility] Address [address] [facility] [place] [address] Care Team Providers Care Machine Operator Transplanter Name Role Phone Prabha Jaime MD Primary Care Provider [phone] Source Comments [facility],non-owned Affiliates and Associated Physician Practices is amultiple site organization consisting of ambulatory clinics and hospital sitesin [place], [place], [place] and [place]. This disclosure is being madepursuant to the Care Everywhere program and may not contain all information available regarding this patient. Last updated 18.[facility] [employer] Allergies No known active allergies Medications * Be aware that medications may not be up to date on this document. Alwaysverify current medications with the patient. No known medications Active Problems Problem Noted Date Diagnosed Date Hyperthyroidism 08/19/2012 Overview (07/04/2013): She developed congestion and malaise in mid-07/18, then otalgia. On 08/09/12, her fur sewer found acute otitis media and incidentally an [...] 2. Follow up by telephone (family telephone: [phone]) with laboratory results 3. Reviewed signs/symptoms of [...] 2. Follow up by telephone (family telephone: [phone]) with laboratory results 3. Reviewed signs/symptoms of [...] on file Legal Sex Female 1:49 PM TRAIN ENGINEER Gender Identity Not on file Sexual [...] TRICH DNA AMPL Routine 10/03/2021 2:18 PM TRAIN ENGINEER Encounter for insertion of mirena IUD from Last 3 Months or Most Recently Relevant to Health Maintenance Results * CHLAMYDIA + GC + TRICH DNA AMPL (10/03/2021 2:18 PM TRAIN ENGINEER) Chlamydia trachomatis NILSON Negative Negative [facility] ACCOUNT BILL GC DNA Probe Negative Negative [facility] ACCOUNT BILL Trichomonas vaginalis by NILSON Negative Negative [facility] ACCOUNT BILL Microbiology ENTIRE ENDOCERVIX / Unknown 10/03/2021 2:18 PM TRAIN ENGINEER 10/03/2021 Narrative Resulting Agency Comment Lab Testing performed at: [address] [id number] Lois Spicer MD LAB - MICROBIOLOGY ORDERABLES Final Result [facility] ACCOUNT BILL [address] [place] [address] from Last 3 Months or Most Recently Relevant to Health Maintenance Insurance [facility] Care Teams Machine Operator Transplanter Relationship Specialty Start Date End Date Prabha Jaime MD [address] [facility] [address] [place] [address] PCP - General Pediatrics 08/18/12
[2025-03-19 16:37] VITALS: BP 108/52; PULSE 75; RESP 14; TEMP 36.8; O2SAT 97; BMI 22.8
--- NOTE | 2025-03-19 16:49 | ADMGEN ---
This patient, Champ Asencio, was admitted to [facility] Surg Room 325-02. Patient/family oriented to hospital policies and general routines including ID bracelet, bed and alarms, visiting hours, pain management, procedures, bathroom and other care routines, personal items, smoking policy, room service/diet, and visiting hours. Information on how to activate the Rapid Response Team has been discussed. Patient/Family are encouraged to report perceived risks to care and to ask questions if they do not understand what they are told or what they should do.
[2025-03-19 20:00] VITALS: PULSE 76; RESP 20; O2SAT 98
[2025-03-19 21:57] VITALS: BP 111/75; PULSE 76; RESP 20; TEMP 36.5; O2SAT 98
[2025-03-19 22:33] LABS: Negative Monotest Control Negative (Negative); Positive Monotest Control Positive (Positive)
[2025-03-19 22:34] LABS: Cholesterol 118 mg/dL (0-200); HDL Direct 12 mg/dL; Triglycerides 101 mg/dL (<150)
[2025-03-19 23:05] LABS: Thyroid Stimulating Hormone Reflex 1.810 uIU/mL (0.465-4.68)
[2025-03-19 23:10] LABS: Ferritin 36.50 ng/mL (6.24-137)
[2025-03-19 23:15] LABS: HIV 1/2 Ab P24 Ag Result Negative (Negative)
--- NOTE | 2025-03-20 | ECHO_ITS ---
Patient Info Name: Champ Asencio Age: 19 years : 2005 Gender: Female Ht: 64 in Wt: 132 lbs BSA: 1.65 m2 HR: 76 bpm BP: 111 / 75 mmHg Technical Quality: Good Exam Date: 03/20/2025 7:23 AM Patient Status: O Admit Date: 03/19/2025 Exam Type: CA echo doppler color flow Complete two-dimensional, color flow and Doppler transthoracic echocardiogram is performed. Staff Referring Physician: Madelyn Baugh Wool Grader: Lluvia Kelly Attending Provider: Finn Aly Summary 1. Complete two-dimensional, color flow and Doppler transthoracic echocardiogram is performed. 2. Left ventricular chamber dimension is mildly enlarged. 3. Left ventricular systolic function is normal, estimated at 60-65. 4. The left ventricular diastolic function is grade I diastolic dysfunction. 5. E/e' 6 is not elevated. 6. Left atrial chamber dimension is mildly enlarged. 7. There is trace mitral valve regurgitation. 8. There is trace tricuspid valve regurgitation. 9. No pulmonary hypertension, estimated pulmonary arterial systolic pressure is 26 mmHg. 10. There is trace pulmonic regurgitation. Left Ventricle E/e' 6 is not elevated. Left ventricular chamber dimension is mildly enlarged. Left ventricular systolic function is normal, estimated at 60-65. The left ventricular diastolic function is grade I diastolic dysfunction. Right Ventricle Right ventricular chamber dimension is normal. Right ventricular systolic function is normal and with normal TAPSE 3.4 cm. Left Atria Left atrial chamber dimension is mildly enlarged. Right Atria Right atrial chamber dimension is normal. Aortic Valve The aortic valve is trileaflet. There is no aortic valve stenosis. There is no aortic valve regurgitation. Pulmonic Valve There is trace pulmonic regurgitation. Mitral Valve There is no mitral valve stenosis. There is trace mitral valve regurgitation. Tricuspid Valve There is trace tricuspid valve regurgitation. No pulmonary hypertension, estimated pulmonary arterial systolic pressure is 26 mmHg. Pericardium/Pleural There is no pericardial effusion. Inferior Vena Cava Normal inferior vena cava with >50% collapse upon inspiration consistent with normal right atrial pressure, 5 mmHg. Aorta The aortic root size at the sinus of Valsalva is normal. Left Ventricular Outflow Tract Name Value Normal LVOT 2D LVOT Diameter 2.1 cm LVOT Doppler LVOT Peak Velocity 119 cm/s LVOT Peak Gradient 6 mmHg LVOT Mean Gradient 3 mmHg LVOT VTI 23 cm LVOT VTI/AV VTI Ratio 0.8 LVOT Stroke Volume 83 ml LVOT CO 6.6 l/min LVOT CI 4.0 l/min/m2 Pulmonic Valve Name Value Normal PV Doppler PV Peak Velocity 112 cm/s PV Peak Gradient 5 mmHg Mitral Valve Name Value Normal MV Doppler MV Peak Gradient 6 mmHg MV Mean Gradient 2 mmHg MV Area (Cont Eq VTI) 2.7 cm2 MV Regurgitation Doppler MR Peak Gradient 106 mmHg MV Diastolic Function MV E Peak Velocity 114 cm/s MV A Peak Velocity 57 cm/s MV E/A 2.0 MV Decel Time (PW) 235 ms MV Annular TDI MV E/e' (Septal) 7.7 MV E/e' (Lateral) 5.2 MV E/e' (Average) 6.4 Tricuspid Valve Name Value Normal TV Regurgitation Doppler TR Peak Velocity 230 cm/s TR Peak Gradient 21 mmHg Estimated PAP/RSVP RA Pressure 5 mmHg <=5 PA Systolic Pressure 26 mmHg <36 RV Systolic Pressure 26 mmHg <36 TV Annular TDI TV Lateral Ai s' Velocity 13.2 cm/s >=9.5 Aortic Valve Name Value Normal AV Doppler AV Peak Velocity 134 cm/s AV Peak Gradient 7 mmHg AV Mean Gradient 4 mmHg AV VTI 30 cm AV Area (Cont Eq VTI) 2.7 cm2 >=3.0 AV Area (Cont Eq Jerardo) 3.1 cm2 AV DI (Jerardo) 0.88 AV Regurgitation 2D LVOT Area 3.6 cm2 Ventricles Name Value Normal LV Dimensions 2D/MM IVS Diastolic Thickness (2D) 0.7 cm 0.6-1.0 LVID Diastole (2D) 5.3 cm 3.8-5.2 LVIW Diastolic Thickness (2D) 0.8 cm 0.6-0.9 LVID Systole (2D) 3.4 cm 2.2-3.5 LVOT Diameter 2.1 cm LV Mass (2D Cubed) 129.56 g 67.00-162.00 LV Mass Index (2D Cubed) 79 g/m2 43-95 Relative Wall Thickness (2D) 0.29 <=0.42 LV Fractional Shortening/Ejection Fraction 2D/MM LV Fractional Shortening (2D) 36 % 27-45 LV EF (2D Teichholz) 65 % LV Diastolic Volume (4C MOD) 112 ml LV EF (4C MOD) 65 % LV Diastolic Volume (2C MOD) 134 ml LV EF (2C MOD) 69 % LV Diastolic Volume (BP MOD) 129 ml 46-106 LV Diastolic Volume Index (BP MOD) 78 ml/m2 29-61 LV Systolic Volume (BP MOD) 42 ml 14-42 LV Systolic Volume Index (BP MOD) 25 ml/m2 8-24 LV EF (BP MOD) 68 % 54-74 LV Diastolic Length (4C) 8.6 cm LV Systolic Length (4C) 6.9 cm LV Stroke Volume (4C MOD) 72 ml Atria Name Value Normal LA Dimensions LA Volume (4C A-L) 55 ml LA Volume (BP A-L) 66 ml RA Dimensions RA Systolic Major [place] Length (4C) 4.8 cm 2.2-2.8 RA Area (4C) 13.2 cm2 <=18.0 Report Signatures
[2025-03-20] MEDS: PIPERACILLIN/TAZOBACTAM SOD 3.375 GM in SODIUM CHLORIDE 0.9% IV 50 ML 100 ML IVPB ×4 (02:29→20:30)
[2025-03-20] MEDS: LACTATED RINGERS 1,000 ML 100 ML IV CONT (02:29)
[2025-03-20 06:00] VITALS: BP 111/61; PULSE 76; RESP 20; TEMP 36.3; O2SAT 100
[2025-03-20 06:13] LABS: Hematocrit 31.5 % (37.0-47.0); Hemoglobin 10.5 g/dL (12.0-15.0); Immature Granulocyte Percent A 0.3 % (0-0.5); Immature Platelet Fraction Pct 2.1 % (0.9-11.2); Lymphocytes Absolute Auto 0.96 K/mm3 (0.9-3.2); Mean Corpuscular HGB Conc 33.3 g/dl (32-36); Mean Corpuscular Hemoglobin 34.0 pg (26-34); Mean Corpuscular Volume 101.9 fl (80-100); Nucleated Red Blood Cells Absolute Auto 0.000 K/mm3 (0.0-0.012); Nucleated Red Blood Cells Perc 0.0 % (0.0-0.2); Platelet Count Result 125 k/mm3 (150-375); Red Blood Count 3.09 M/mm3 (4.2-5.4); White Blood Count 2.9 K/mm3 (4.5-10.0)
[2025-03-20 06:42] LABS: Alanine Aminotransferase 541 U/L (6-35); Albumin Level 3.0 g/dL (3.5-5.1); Alkaline Phosphatase 125 U/L (38-126); Anion Gap 6 mmol/L (4-12); Bilirubin,Total 6.7 mg/dL (0.2-1.3); Blood Urea Nitrogen 9 mg/dL (7-17); Calcium 7.8 mg/dL (8.4-10.2); Carbon Dioxide 22 mmol/L (22-30); Chloride 110 mmol/L (98-107); Estimated CRCL calculation 92 ml/min; Estimated Glomerular Filt Rate > 60; Glucose 78 mg/dL (65-110); Lipase 269 U/L (23-300); Potassium 4.2 mmol/L (3.4-5.0); Sodium 138 mmol/L (137-145); Total Protein 9.9 g/dL (6.3-8.2)
[2025-03-20 06:48] LABS: Aspartate Amino Transferase 937 U/L (14-36)
--- NOTE | 2025-03-20 07:57 | P.CONGI_ITS ---
Assessment and Plan Assessment and plan (1) Elevated liver enzymes: Code(s): R74.8 - Abnormal levels of other serum enzymes Status: Acute (2) Pancytopenia: Code(s): D61.818 - Other pancytopenia Status: Acute (3) RUQ pain: Code(s): R10.11 - Right upper quadrant pain Status: Acute (4) Scleral icterus: Code(s): R17 - Unspecified jaundice Status: Acute (5) Jaundice: Code(s): R17 - Unspecified jaundice Status: Acute Plan 1. Elevated LFT's/pancytopenia/jaundice/scleral icterus: Hepatitis panel negative. EBV, HSV, CMV pending. Urine bilirubin 2+ and urine protein negative. Abdominal ultrasound normal. Labs today: BUN 9, creatinine 0.72, calcium 7.8, ferritin 36.50. Total bilirubin 6.7, direct bilirubin 1.5 indirect bilirubin 2.5, AST 937, ALT 541, alkaline phosphatase 125, albumin 3.0. WBCs 3, HGB 11, HCT 32, MCV 102, platelets 125. LFTs have remained stable since admission. CT showed diffuse periportal edema in the liver which could be seen with hepatitis, ascending cholangitis, pyelonephritis, heart failure and aggressive volume resuscitation. Minimal stranding at the tip the cecum and base of the appendix which measures up to 8-9 mm which raises some suspicion for but is not definitive for acute appendicitis. Dr. Izaguirre discussed this and the above findings with Dr. Abad at 12:10 PM. Patient 1st started noticing her jaundice and scleral icterus around December timeframe. Since that time she has also been experiencing intermittent right upper quadrant pain without any known precipitating factors but she states that this pain typically would resolve in < 5 minutes without intervention so she did not think much of it. Since receiving IV antibiotics her right upper quadrant pain has resolved. DDX: Cholangitis vs biliary obstruction vs CHF vs thrombus vs Budd Chiari vs other hepatic etiology. * Liver workup ordered minus what has already been checked * BNP ordered * MRCP and cardiac echo pending * If work up is unremarkable will consider arterial/peripheral duplex to r/o thrombosis-Ian Pinon Thank you very much for allowing me to share in the care of this very nice patient. This report may have been done utilizing a voice recognition system. Attempts have been made to correct errors. However, there may be uncorrected grammatical, spelling, and recognition errors present. GI Consult Note Consult date/time: 03/20/25 07:57 Reason for consult: Elevated LFT's and periportal edema HPI: Champ Asencio is a 19 year old female with no significant past medical surgical history who presented to the emergency room yesterday with complaints of fatigue, jaundice, and right upper quadrant pain x1 month. Patient was admitted for pancytopenia and elevated LFTs. GI consulted for elevated LFTs. Patient was seen with her mother Marissa and father Sudheer at her bedside throughout the entire visit. Patient states that around December timeframe she started noticing her eyeballs and skin were yellowing. She has been experiencing intermittent right upper quadrant pain for a few months that was intermittent in nature and typically only last for around 5 minutes before resolving without intervention. Since she was given antibiotics this admission her right upper quadrant pain has resolved. She denies any change in her bowel habits she typically has a formed to soft non urgent bowel movement every 1-2 days. Denies nausea, vomiting, bloating, odynophagia, dysphagia, reflux, regurgitation, early satiety, appetite or weight loss. Denies diarrhea, constipation, hematochezia, or melena. She denies any recent change in medications or rapid weight loss. She is a nondrinker nonsmoker and denies any marijuana use. Family history negative for CRC or IBD but multiple women on her mother's side have had cholecystectomies. ENDOSCOPY HISTORY: The patient has never had an EGD or colonoscopy LABS AND STOOL STUDIES: Labs 03/20/2025: Sodium 138, potassium 4.2, BUN 9, creatinine 0.72, GFR >60, calcium 7.8 WBC 3, Hgb 11, Hct 32, MCV 102, platelets 125 Total bilirubin 6.7, AST 937, ALT 541, Alkaline Phos 125, albumin 3.0, lipase 269 Labs 03/19/2025: Sodium 138, potassium 3.9, BUN 8, creatinine 0.65, GFR >60, calcium 7.8 WBC 4, Hgb 10, Hct 31, MCV 101, platelets 127 Total bilirubin 6.6, AST 926, ALT 564, Alkaline Phos 140, albumin 2.2, direct bilirubin 1.5 indirect bilirubin 2.5 Triglycerides 101, total cholesterol 118, lipase 309, TSH 1.810, ferritin 36.50 IMAGING: CT abd/pelvis w/contrast 03/19/2025: IMPRESSION: 1. Diffuse periportal edema in the liver which could be seen with hepatitis, ascending cholangitis, pyelonephritis, heart failure and aggressive volume resuscitation. 2. Minimal stranding at the tip the cecum and base of the appendix which measures up to 8-9 mm which raises some suspicion for but is not definitive for acute appendicitis. Dr. Izaguirre discussed this and the above findings with Dr. Abad at 12:10 PM. 3. Nonspecific splenomegaly measuring 17.1 cm craniocaudally. 4. T-shaped IUD in expected position within the anteverted uterus. Abdominal Ultrasound 03/19/2025: FINDINGS: PANCREAS: Normal echotexture and size of the visualized portion. PORTAL VEIN: Hepatopedal flow demonstrated. Portal vein measures 1.3 cm. LIVER: Normal size and echotexture. Measures 15.3 cm. No focal hepatic lesions or perihepatic fluid collections are identified. BILIARY DUCTS: No intra or extrahepatic biliary dilation. Common bile duct measures 3.4 mm in diameter which is normal for patient's age. GALLBLADDER: Contracted. Normal. No stones, sludge, gallbladder wall thickening or pericholecystic fluid. The wall thickness is 2 mm. Negative sonographic Iyer's sign. IVC: Patent. FREE FLUID: None visualized within the upper abdomen. IMPRESSION: normal limited abdominal ultrasound Review of Systems 2 Constitutional: Constitutional: Reports as per HPI ENT: Reports as per HPI Cardiovascular: Cardiovascular: Reports as per HPI, Denies chest pain and Denies dyspnea Respiratory: Respiratory: Denies cough and Denies dyspnea Gastrointestinal: Gastrointestinal: Reports as per HPI Musculoskeletal: Musculoskeletal: Reports as per HPI Integumentary/Breasts: Skin/Breast: Reports as per HPI Psychiatric: Psychiatric: Reports as per HPI Endocrine: Endocrine: Reports no additional endocrine complaints Hematologic/Lymphatic: Hematologic/Lymphatic: Reports no additional hematologic/lymphatic complaints [facility] Past Medical History Medical History (Updated 03/20/25 @ 10:13 by Madelyn Baugh APRN) GERD (gastroesophageal reflux disease) Anxiety ADHD Hyperthyroidism Social History Social History Smoking status: Never smoker Alcohol intake: never Substance use: never Do You Feel Safe in your Home?: Yes Lack of Transportation: No Lack of Food: Never True Current Housing: I Have Housing Concerned About Future Housing: No Difficulty Paying Gas/Electric Bills: No Difficulty Paying for Meds: No Currently Unemployed: No Education: High School Diploma/GED Difficulty w/ Childcare or Family Care: No Spiritual care concerns: No Meds Home Medications and Allergies Home Medications ?Medication ?Instructions ?Recorded ?Confirmed ?Type No Home Medications 03/19/25 03/19/25 History Allergies Allergy/AdvReac Type Severity Reaction Status Date / Time No Known Allergies Allergy Verified 03/19/25 10:07 Vital Signs Vital Signs - 24 hr 03/19/25 09:55 03/19/25 13:00 03/19/25 15:00 Temperature 98.3 F Pulse Rate 97 80 79 Respiratory Rate 16 16 16 Blood Pressure 132/81 112/68 114/64 Pulse Oximetry 100 100 100 Oxygen Delivery Room Air 03/19/25 16:37 03/19/25 17:29 03/19/25 20:00 Temperature 98.2 F Pulse Rate 75 76 Respiratory Rate 14 20 Blood Pressure 108/52 L Pulse Oximetry 97 98 Oxygen Delivery Room Air Room Air 03/19/25 21:57 03/20/25 06:00 Temperature 97.7 F 97.4 F L Pulse Rate 76 76 Respiratory Rate 20 20 Blood Pressure 111/75 111/61 Pulse Oximetry 98 100 Oxygen Delivery Exam 2 Const: General: cooperative, healthy appearing, comfortable, no acute distress and well developed Orientation/consciousness: oriented to person, oriented to place, oriented to time and patient oriented x3 HENMT: Head: normal to inspection, normocephalic and atraumatic Mouth: Yes Normal oral and palatal mucosa present and Yes moist mucous membranes Eyes: General: appearance normal, both eyes and all related structures C onjunctivae: conjunctivae normal Sclera: sclerae normal Pupils: Equal, round and reactive pupils present Neck: Neck: normal visual inspection Chest: Chest palpation & inspection: normal inspection of the chest Resp: Effort & Inspection: normal respiratory effort and able to speak in complete sentences Auscultation: clear to auscultation bilaterally Cardio: Jugular venous distension: no JVD Rate: regular rate Rhythm: r egular rhythm Heart sounds: S1 normal heart sound present and S2 normal heart sound present GI: Inspection: normal to inspection GI Palp: Yes Soft to palpation and Yes No hepatosplenomegaly present Auscultation: normal bowel sounds Rectal Exam: deferred Skin: General skin exam: normal color and no rashes or lesions noted Neuro: General: oriented to person, oriented to place, oriented to time and patient oriented x3 Cranial nerves: Yes Equal, round and reactive pupils present Speech: normal speech Extrem: General: normal to inspection and no clubbing, cyanosis or edema Psych: Appearance: grossly normal and well kempt Affect: normal affect Results Labs 03/20/25 05:52 03/20/25 05:52 Labs: Short CBC 03/19/25 03/20/25 Range/Units 10:19 05:52 WBC 3.8 L 2.9 L (4.5-10.0) K/mm3 Hgb 10.0 L 10.5 L (12.0-15.0) g/dL Hct 30.5 L 31.5 L (37.0-47.0) % Plt Count 127 L 125 L (150-375) k/mm3 BMP 03/19/25 03/20/25 10:19 05:52 Sodium 138 138 Potassium 3.9 4.2 Chloride 111 H 110 H Carbon Dioxide 20 L 22 BUN 8 9 Creatinine 0.65 L 0.72 Glucose 107 78 Calcium 7.8 L 7.8 L Liver Function 03/19/25 03/19/25 03/20/25 Range/Units 10:19 22:11 05:52 Total Bilirubin 6.6 H 6.7 H (0.2-1.3) mg/dL Direct Bilirubin 1.5 H (0-0.3) mg/dL AST 926 H 937 H (14-36) U/L ALT 564 H 541 H (6-35) U/L Alkaline Phosphatase 140 H 125 (38-126) U/L Albumin 3.2 L 3.0 L (3.5-5.1) g/dL Urine 03/19/25 Range/Units 10:16 Urine Color Dark yellow (Yellow) Urine Appearance Clear (Clear) Urine pH 5.0 (5.0-9.0) Ur Specific [place] 1.017 (1.001-1.035) Urine Protein Negative (Negative) mg/dL Urine Glucose (UA) Negative (Negative) mg/dL
[2025-03-20 09:13] LABS: Iron 215 ug/dL (37-170)
[2025-03-20 09:17] LABS: NT Pro B Type Natriuretic Pept 36 pg/mL (19.9-100)
[2025-03-20 09:22] LABS: Percent Iron Saturation 68 % (20-50)
[2025-03-20 10:33] LABS: Vitamin B12 646.0 pg/mL (239-931)
[2025-03-20 14:00] VITALS: BP 110/64; PULSE 76; RESP 18; TEMP 36.2; O2SAT 100
--- NOTE | 2025-03-20 15:39 | P.PNIM_ITS ---
Progress Note: A&P Assessment and Plan (1) Elevated bilirubin: Code(s): R17 - Unspecified jaundice Status: Acute Assessment and Plan: CT abd/pelvis: 1. Diffuse periportal edema in the liver which could be seen with hepatitis, ascending cholangitis, pyelonephritis, heart failure and aggressive volume resuscitation. 2. Minimal stranding at the tip the cecum and base of the appendix which measures up to 8-9 mm which raises some suspicion for but is not definitive for acute appendicitis. 3. Nonspecific splenomegaly measuring 17.1 cm craniocaudally. concern for Viral/autoimmune induced hepatitis vs Cholangitis vs biliary obstruction vs CHF vs thrombus vs Budd Chiari - check hepatitis panel -> negative -, EBV, CMV, RENO, HIV, ferritin, and HSV - started on Zosyn on 03/19 MRCP:Nonspecific periportal edema,portal venous hypertension ECho pending Will follow pending lab results. (2) Pancytopenia: Code(s): D61.818 - Other pancytopenia Status: Acute Assessment and Plan: - WBC 2.9, Plt 125, Hb 10.5 - differential includes EBV, CMV, HSV - monitor Plan Diet: regular, GI Prophylaxis: NA DVT Prophylaxis: SCDs IV fluids: Lines/Tubes: Peripheral IV Code Status: Full code Subjective Date/time seen: 03/20/25 15:39 Interval history: per Hpi: 19 y/o F with no significant PMH presents here with skin changes and abdominal pain. The patient presents here from home for further evaluation of yellowing of the skin and abdominal pain. She reports she noted that she has had skin changes and changes to her or sclera coloring over the last 3 to 4 months. Patient then developed intermittent right upper quadrant abdominal pain in the last month. This is accompanied by fatigue and nausea without vomiting. She describes the abdominal pain as sharp, upper right abdominal pain, radiation into her lower abdomen, intermittent with episodes lasting around 5 minutes, and no modifying factors patient is aware of. Has been taking Advil for the pain. She denies accompanying constipation, diarrhea, fever, chills, abdominal bloating. Denies history of IVDU or international travel. Initial VS at presentation: 98.3? F, HR 97, R 16, 132/81, and 100% on RA. ED workup showed: WBC 3.8, hemoglobin 10.0, platelet count 127, creatinine 0.65 and GFR >60, total bilirubin 6.6, AST 926, ALT 964, alk-phos 140, lipase 309, UA showed 2+ bilirubin otherwise unremarkable. CT showed diffuse periportal edema the liver which could be seen with hepatitis/ascending cholangitis/pyelonephritis/heart failure and aggressive volume resuscitation, minimal stranding at the tip of the cecum base of the appendix which raises some suspicion for acute appendicitis, nonspecific splenomegaly measuring 17.1 cm, and T shaped IUD in expected position. Abdominal US showed no stones/sludge/gallbladder thickening and negative Iyer sign 03/20/25 Patient was seen and examined at bedside. she is feeling better. denies chest pain, SOB, N/V. has intermittent shooting abd pain in RUQ. WBC 2.9, Plt 125, Hb 10.5, AST 937, ALT 541, ALKp 125 MRCP:Nonspecific periportal edema,portal venous hypertension ECho pending Will follow pending lab results. follow GI team recs Review of Systems Review of Systems: All systems reviewed & are unremarkable except as noted in HPI and below Exam Const: General: comfortable and no acute distress Other: , female, nontoxic appearance HENMT: Face/Nose/Sinus: Normal nares present Mouth: Yes moist mucous membranes Eyes: General: appearance normal, both eyes and all related structures Sclera: sclerae normal Pupils: Equal, round and reactive pupils present EOM: EOMs intact bilaterally Resp: Effort & Inspection: normal respiratory effort Auscultation: clear to auscultation bilaterally Cardio: Rate: regular rate Rhythm: regular rhythm Other: S1-S2 present without murmur, rub, ectopy GI: Other: Abdomen soft, nondistended. Mild tenderness in the right upper quadrant/diffuse. Normoactive bowel sounds in all quadrants. Skin: General skin exam: normal color and no rashes or lesions noted Wounds: no wounds Neuro: Cranial nerves: Yes Equal, round and reactive pupils present Speech: normal speech Motor exam (neuro): 5/5 motor strength present throughout Sensory Exam: normal sensation Other: A&O x4 Extrem: General: normal to inspection Psych: Mental Status: mental status grossly normal Affect: normal affect Other: Good insight and judgment, pleasant Objective Data Vital Signs Vital Signs: Vital Signs - 24 hr 03/19/25 16:37 03/19/25 17:29 03/19/25 20:00 Temperature 98.2 F Pulse Rate 75 76 Respiratory Rate 14 20 Blood Pressure 108/52 L Pulse Oximetry 97 98 Oxygen Delivery Room Air Room Air 03/19/25 21:57 03/20/25 06:00 03/20/25 08:30 Temperature 97.7 F 97.4 F L Pulse Rate 76 76 Respiratory Rate 20 20 Blood Pressure 111/75 111/61 Pulse Oximetry 98 100 Oxygen Delivery Room Air 03/20/25 14:00 Temperature 97.2 F L Pulse Rate 76 Respiratory Rate 18 Blood Pressure 110/64 Pulse Oximetry 100 Oxygen Delivery Intake/Output Intake/Output: Intake & Output 03/17/25 03/18/25 03/19/25 03/20/25 23:59 23:59 23:59 23:59 Intake Total 890 100 Balance 890 100 Meds/Results Medications: Active Medications Generic Name Dose Route Start Last Admin Trade Name Freq PRN Reason Stop Dose Admin Acetaminophen 650 mg 03/19/25 20:25 Acetaminophen 325 Mg Tablet PO Q6H PRN Mild Pain (1-3) or Fever Calcium Carbonate 200 mg 03/19/25 20:26 Calcium Carbonate (Tums) 500 Mg (200 Mg Elemental) PO Q6H PRN Indigestion Piperacillin Sod/Tazobactam 50 mls @ 100 mls/hr 03/19/25 21:00 03/20/25 15:11 Sod 3.375 gm/ Sodium Chloride IVPB 100 mls/hr Q6H GAYLE Administration Lactated Ringer's 1,000 mls @ 100 mls/hr 03/19/25 21:45 03/20/25 02:29 Lr - Lactated Ringers Iv IV CONT 100 mls/hr .Q10H GAYLE Administration Ondansetron HCl 4 mg 03/19/25 20:25 Ondansetron Inj 4 Mg/2 Ml Vial IV PUSH Q6H PRN Nausea And Vomiting Perflutren Lipid Microsphere 0 ml 03/19/25 20:24 Perflutren Lipid Microspheres 1.5 Ml Vial Diluted To 10 Ml Total Volume IV PUSH 03/22/25 20:24 ONCE PRN adequate visualization Protocol Radiology Results: ITS Impressions Abdomen/Pelvis CT 03/19/25 12:04 IMPRESSION: 1. Diffuse periportal edema in the liver which could be seen with hepatitis, ascending cholangitis, pyelonephritis, heart failure and aggressive volume resuscitation. 2. Minimal stranding at the tip the cecum and base of the appendix which measures up to 8-9 mm which raises some suspicion for but is not definitive for acute appendicitis. Dr. Izaguirre discussed this and the above findings with Dr. Abad at 12:10 PM. 3. Nonspecific splenomegaly measuring 17.1 cm craniocaudally. 4. T-shaped IUD in expected position within the anteverted uterus. Abdomen Ultrasound 03/19/25 12:32 IMPRESSION: normal limited abdominal ultrasound. MRCP 03/20/25 14:12 IMPRESSION: 1. Nonspecific periportal edema with differential as previously detailed. 2. Nonspecific splenomegaly measuring up to 16.7 cm and borderline dilation of the main portal vein measuring up to 1.4 cm, both findings which can be seen in setting of portal venous hypertension. Labs Labs: Laboratory Results - last 24 hr 03/19/25 03/20/25 03/20/25 22:11 05:52 08:42 WBC 2.9 L RBC 3.09 L Hgb 10.5 L Hct 31.5 L MCV 101.9 H MCH 34.0 MCHC 33.3 RDW 16.3 H Plt Count 125 L MPV 10.2 Immature Gran % (Auto) 0.3 Neut % (Auto) 46.3 Lymph % (Auto) 33.3 [place] % (Auto) 10.4 H Eos % (Auto) 8.7 H Baso % (Auto) 1.0 Lymph # (Auto) 0.96 [place] # (Auto) 0.3 Eos # (Auto) 0.3 Baso # (Auto) 0.0 Abs Immat Gran (auto) 0.01 Absolute Neuts (auto) 1.3 Absolute Nucleated RBC 0.000 Nucleated RBC % 0.0 % Immature Plt Fraction 2.1 Sodium 138 Potassium 4.2 Chloride 110 H Carbon Dioxide 22 Anion Gap 6 BUN 9 Creatinine 0.72 Estim Creat Clear Calc 92 Estimated GFR > 60 Glucose 78 Calcium 7.8 L Iron TIBC % Saturation Ferritin 36.50 Total Bilirubin 6.7 H Direct Bilirubin 1.5 H Indirect Bilirubin 2.5 H AST 937 H ALT 541 H Alkaline Phosphatase 125 NT-Pro-B Natriuret Pep Total Protein 9.9 H Albumin 3.0 L Triglycerides 101 Cholesterol 118 LDL Cholesterol Direct 56 HDL Direct 12 Lipase 269 Vitamin B12 Folate TSH (Reflex) 1.810 RENO Screen Cancelled RENO Titer Cancelled RENO Titer 2 Cancelled RENO Titer 3 Cancelled RENO Pattern Cancelled RENO Pattern 2 Cancelled RENO Pattern 3 Cancelled RENO Ref Lab Cancelled RENO Comment Cancelled A. phagocytophilum IgG A. phagocytophilum IgM A. phagocytophilum Cmmt Babesia duncani WA1 IgG Babesia microti IgG Ab Babesia microti IgM Ab Lyme Screen IgG & IgM Lyme Disease Comment Lyme Ab Comment Oth Sp Ehrlichia IgG & IgM E. chaffeensis IgG Com E. chaffeensis IgM Intrp Monoscreen Negative HIV 1&2 Ab/P24 Ag 4thGn Negative Tick-borne Disease Ab 03/20/25 08:44 WBC RBC Hgb Hct MCV MCH MCHC RDW Plt Count MPV Immature Gran % (Auto) Neut % (Auto) Lymph % (Auto) [place] % (Auto) Eos % (Auto) Baso % (Auto) Lymph # (Auto) [place] # (Auto) Eos # (Auto) Baso # (Auto) Abs Immat Gran (auto) Absolute Neuts (auto) Absolute Nucleated RBC Nucleated RBC % % Immature Plt Fraction Sodium Potassium Chloride Carbon Dioxide Anion Gap BUN Creatinine Estim Creat Clear Calc Estimated GFR Glucose Calcium Iron 215 H TIBC 317 % Saturation 68 H Ferritin Total Bilirubin Direct Bilirubin Indirect Bilirubin AST ALT Alkaline Phosphatase NT-Pro-B Natriuret Pep 36 Total Protein Albumin Triglycerides Cholesterol LDL Cholesterol Direct HDL Direct Lipase Vitamin B12 646.0 Folate 10.7 TSH (Reflex) RENO Screen Cancelled RENO Titer Cancelled RENO Titer 2 Cancelled RENO Titer 3 Cancelled RENO Pattern Cancelled RENO Pattern 2 Cancelled RENO Pattern 3 Cancelled RENO Ref Lab RENO Comment Cancelled A. phagocytophilum IgG Cancelled A. phagocytophilum IgM Cancelled A. phagocytophilum Cmmt Cancelled Babesia duncani WA1 IgG Cancelled Babesia microti IgG Ab Cancelled Babesia microti IgM Ab Cancelled Lyme Screen IgG & IgM Cancelled Lyme Disease Comment Cancelled Lyme Ab Comment Oth Sp Cancelled Ehrlichia IgG & IgM Cancelled E. chaffeensis IgG Com Cancelled E. chaffeensis IgM Intrp Cancelled Monoscreen HIV 1&2 Ab/P24 Ag 4thGn Tick-borne Disease Ab Cancelled Quality VTE Prophylaxis VTE prophylaxis: mechanical ordered
[2025-03-20 20:30] VITALS: PULSE 81; RESP 20; O2SAT 98
[2025-03-20 21:42] VITALS: BP 111/71; PULSE 81; RESP 20; TEMP 37.6; O2SAT 98
[2025-03-21] MEDS: PIPERACILLIN/TAZOBACTAM SOD 3.375 GM in SODIUM CHLORIDE 0.9% IV 50 ML 100 ML IVPB ×4 (03:58→20:47)
[2025-03-21 06:00] VITALS: BP 106/59; PULSE 63; RESP 20; TEMP 37.3; O2SAT 99
[2025-03-21 06:00] LABS: Hematocrit 28.8 % (37.0-47.0); Hemoglobin 9.6 g/dL (12.0-15.0); Immature Granulocyte Percent A 0.0 % (0-0.5); Lymphocytes Absolute Auto 0.86 K/mm3 (0.9-3.2); Mean Corpuscular HGB Conc 33.3 g/dl (32-36); Mean Corpuscular Hemoglobin 33.9 pg (26-34); Mean Corpuscular Volume 101.8 fl (80-100); Nucleated Red Blood Cells Absolute Auto 0.000 K/mm3 (0.0-0.012); Nucleated Red Blood Cells Perc 0.0 % (0.0-0.2); Platelet Count Result 110 k/mm3 (150-375); Red Blood Count 2.83 M/mm3 (4.2-5.4); White Blood Count 2.9 K/mm3 (4.5-10.0)
[2025-03-21 06:08] LABS: HSV 1 IgG, Type Spec Non Reactive (Non Reactive); HSV 2 IgG, Type Spec Non Reactive (Non Reactive)
[2025-03-21 06:33] LABS: Alanine Aminotransferase 519 U/L (6-35); Albumin Level 2.9 g/dL (3.5-5.1); Alkaline Phosphatase 121 U/L (38-126); Anion Gap 5 mmol/L (4-12); Bilirubin,Total 6.1 mg/dL (0.2-1.3); Blood Urea Nitrogen 10 mg/dL (7-17); Calcium 7.6 mg/dL (8.4-10.2); Carbon Dioxide 23 mmol/L (22-30); Chloride 109 mmol/L (98-107); Estimated CRCL calculation 96 ml/min; Estimated Glomerular Filt Rate > 60; Glucose 90 mg/dL (65-110); Potassium 3.9 mmol/L (3.4-5.0); Sodium 137 mmol/L (137-145); Total Protein 9.7 g/dL (6.3-8.2)
[2025-03-21 07:12] LABS: Aspartate Amino Transferase 921 U/L (14-36)
[2025-03-21 08:09] LABS: GGT 80 IU/L (0-60)
[2025-03-21 10:08] LABS: Cytomegalovirus (CMV) Ab, IgG 0.63 U/mL (0.00-0.59); Cytomegalovirus (CMV) Ab, IgM <30.0 AU/mL (0.0-29.9)
[2025-03-21 13:17] LABS: INR 1.8; Prothrombin Time 20.4 Seconds (11.1-14.7)
[2025-03-21 14:00] VITALS: BP 104/55; PULSE 79; RESP 18; TEMP 36.8; O2SAT 99
--- NOTE | 2025-03-21 14:46 | P.PNIM_ITS ---
Progress Note: A&P Assessment and Plan (1) Elevated bilirubin: Code(s): R17 - Unspecified jaundice Status: Acute Assessment and Plan: CT abd/pelvis: 1. Diffuse periportal edema in the liver which could be seen with hepatitis, ascending cholangitis, pyelonephritis, heart failure and aggressive volume resuscitation. 2. Minimal stranding at the tip the cecum and base of the appendix which measures up to 8-9 mm which raises some suspicion for but is not definitive for acute appendicitis. 3. Nonspecific splenomegaly measuring 17.1 cm craniocaudally. concern for Viral/autoimmune induced hepatitis vs Cholangitis vs biliary obstruction vs CHF vs thrombus vs Budd Chiari - check hepatitis panel -> negative -, EBV, CMV, RENO, HIV, ferritin, and HSV - started on Zosyn on 03/19 MRCP:Nonspecific periportal edema,portal venous hypertension liver enzymes getting slightly better. Doppler showed Mildly dilated main portal vein which can be seen with portal venous hypertension. Otherwise normal duplex Doppler stud. no evident thrombosis. Echo showed G1D no significant abnormality. Will follw GI team rec (2) Pancytopenia: Code(s): D61.818 - Other pancytopenia Status: Acute Assessment and Plan: - WBC 2.9, Plt 125, Hb 10.5 - differential includes EBV, CMV, HSV - monitor Plan Diet: regular, GI Prophylaxis: NA DVT Prophylaxis: SCDs IV fluids: Lines/Tubes: Peripheral IV Code Status: Full code Subjective Date/time seen: 03/21/25 14:46 Interval history: per Hpi: 19 y/o F with no significant PMH presents here with skin changes and abdominal pain. The patient presents here from home for further evaluation of yellowing of the skin and abdominal pain. She reports she noted that she has had skin changes and changes to her or sclera coloring over the last 3 to 4 months. Patient then developed intermittent right upper quadrant abdominal pain in the last month. This is accompanied by fatigue and nausea without vomiting. She describes the abdominal pain as sharp, upper right abdominal pain, radiation into her lower abdomen, intermittent with episodes lasting around 5 minutes, and no modifying factors patient is aware of. Has been taking Advil for the pain. She denies accompanying constipation, diarrhea, fever, chills, abdominal bloating. Denies history of IVDU or international travel. Initial VS at presentation: 98.3? F, HR 97, R 16, 132/81, and 100% on RA. ED workup showed: WBC 3.8, hemoglobin 10.0, platelet count 127, creatinine 0.65 and GFR >60, total bilirubin 6.6, AST 926, ALT 964, alk-phos 140, lipase 309, UA showed 2+ bilirubin otherwise unremarkable. CT showed diffuse periportal edema the liver which could be seen with hepatitis/ascending cholangitis/pyelonephritis/heart failure and aggressive volume resuscitation, minimal stranding at the tip of the cecum base of the appendix which raises some suspicion for acute appendicitis, nonspecific splenomegaly measuring 17.1 cm, and T shaped IUD in expected position. Abdominal US showed no stones/sludge/gallbladder thickening and negative Iyer sign 03/20/25 Patient was seen and examined at bedside. she is feeling better. denies chest pain, SOB, N/V. has intermittent shooting abd pain in RUQ. WBC 2.9, Plt 125, Hb 10.5, AST 937, ALT 541, ALKp 125 MRCP:Nonspecific periportal edema,portal venous hypertension ECho pending Will follow pending lab results. follow GI team recs 03/21/25 Patient was seen and examined at bedside. she is feeling batter. denies chest pain. continue to have intermittent abd pain. WBC 2.9, Hb 9.6. liver enzymes getting slightly better. Doppler showed Mildly dilated main portal vein which can be seen with portal venous hypertension. Otherwise normal duplex Doppler stud. no evident thrombosis. Echo showed G1D no significant abnormality. Will follw GI team recs. Review of Systems Review of Systems: All systems reviewed & are unremarkable except as noted in HPI and below Exam Const: General: comfortable and no acute distress Other: , female, nontoxic appearance HENMT: Face/Nose/Sinus: Normal nares present Mouth: Yes moist mucous membr anes Eyes: General: appearance normal, both eyes and all related structures Sclera: sclerae normal Pupils: Equal, round and reactive pupils present EOM: EOMs intact bilaterally Resp: Effort & Inspection: normal respiratory effort Auscultation: clear to auscultation bilaterally Cardio: Rate: regular rate Rhythm: regular rhythm Other: S1-S2 present without murmur, rub, ectopy GI: Other: Abdomen soft, nondistended. Mild tenderness in the right upper quadrant/diffuse. Normoactive bowel sounds in all quadrants. Skin: General skin exam: normal color and no rashes or lesions noted Wounds: no wounds Neuro: Cranial nerves: Yes Equal, round and reactive pupils present Speech: normal speech Motor exam (neuro): 5/5 motor strength present throughout Sensory Exam: normal sensation Other: A&O x4 Extrem: General: normal to inspection Psych: Mental Status: mental status grossly normal Affect: normal affect Other: Good insight and judgment, pleasant Objective Data Vital Signs Vital Signs: Vital Signs - 24 hr 03/20/25 20:30 03/20/25 21:42 03/21/25 06:00 Temperature 99.6 F 99.2 F Pulse Rate 81 81 63 Respiratory Rate 20 20 20 Blood Pressure 111/71 106/59 L Pulse Oximetry 98 98 99 Oxygen Delivery Room Air Intake/Output Intake/Output: Intake & Output 03/18/25 03/19/25 03/20/25 03/21/25 23:59 23:59 23:59 23:59 Intake Total 890 200 340 Balance 890 200 340 Meds/Results Medications: Active Medications Generic Name Dose Route Start Last Admin Trade Name Freq PRN Reason Stop Dose Admin Acetaminophen 650 mg 03/19/25 20:25 Acetaminophen 325 Mg Tablet PO Q6H PRN Mild Pain (1-3) or Fever Calcium Carbonate 200 mg 03/19/25 20:26 Calcium Carbonate (Tums) 500 Mg (200 Mg Elemental) PO Q6H PRN Indigestion Piperacillin Sod/Tazobactam 50 mls @ 100 mls/hr 03/19/25 21:00 03/21/25 10:49 Sod 3.375 gm/ Sodium Chloride IVPB Infused Q6H GAYLE Infusion Ondansetron HCl 4 mg 03/19/25 20:25 Ondansetron Inj 4 Mg/2 Ml Vial IV PUSH Q6H PRN Nausea And Vomiting Perflutren Lipid Microsphere 0 ml 03/19/25 20:24 Perflutren Lipid Microspheres 1.5 Ml Vial Diluted To 10 Ml Total Volume IV PUSH 03/22/25 20:24 ONCE PRN adequate visualization Protocol Radiology Results: ITS Impressions Abdomen/Pelvis CT 03/19/25 12:04 IMPRESSION: 1. Diffuse periportal edema in the liver which could be seen with hepatitis, ascending cholangitis, pyelonephritis, heart failure and aggressive volume resuscitation. 2. Minimal stranding at the tip the cecum and base of the appendix which measures up to 8-9 mm which raises some suspicion for but is not definitive for acute appendicitis. Dr. Izaguirre discussed this and the above findings with Dr. Abad at 12:10 PM. 3. Nonspecific splenomegaly measuring 17.1 cm craniocaudally. 4. T-shaped IUD in expected position within the anteverted uterus. Abdomen Ultrasound 03/19/25 12:32 IMPRESSION: normal limited abdominal ultrasound. MRCP 03/20/25 14:12 IMPRESSION: 1. Nonspecific periportal edema with differential as previously detailed. 2. Nonspecific splenomegaly measuring up to 16.7 cm and borderline dilation of the main portal vein measuring up to 1.4 cm, both findings which can be seen in setting of portal venous hypertension. Arterial/Peripheral Duplex 03/20/25 18:41 IMPRESSION: 1. Mildly dilated main portal vein which can be seen with portal venous hypertension. Otherwise normal duplex Doppler study of the hepatic and portal veins with normal directional flow and waveforms and no evident thrombosis. Labs Labs: Laboratory Results - last 24 hr 03/19/25 03/20/25 03/20/25 22:11 08:43 08:44 WBC RBC Hgb Hct MCV MCH MCHC RDW Plt Count MPV Immature Gran % (Auto) Neut % (Auto) Lymph % (Auto) [place] % (Auto) Eos % (Auto) Baso % (Auto) Lymph # (Auto) [place] # (Auto) Eos # (Auto) Baso # (Auto) Abs Immat Gran (auto) Absolute Neuts (auto) Absolute Nucleated RBC Nucleated RBC % PT INR Sodium Potassium Chloride Carbon Dioxide Anion Gap BUN Creatinine Estim Creat Clear Calc Estimated GFR Glucose Calcium Total Bilirubin GGT 80 H AST ALT Alkaline Phosphatase Total Protein Albumin Ceruloplasmin 16.3 L Mitochondria M2 Ab <20.0 Actin IgG Antibody 130 H CMV IgG Ab 0.63 H CMV IgM Ab <30.0 HSV1 IgG Type-Specific Ab Non reactive HSV2 IgG Type-Specific Ab Non reactive 03/21/25 03/21/25 05:47 12:39 WBC 2.9 L RBC 2.83 L Hgb 9.6 L Hct 28.8 L MCV 101.8 H MCH 33.9 MCHC 33.3 RDW 15.9 H Plt Count 110 L MPV 9.9 Immature Gran % (Auto) 0.0 Neut % (Auto) 49.1 Lymph % (Auto) 30.0 [place] % (Auto) 11.5 H Eos % (Auto) 8.4 H Baso % (Auto) 1.0 Lymph # (Auto) 0.86 L [place] # (Auto) 0.3 Eos # (Auto) 0.2 Baso # (Auto) 0.0 Abs Immat Gran (auto) 0.00 Absolute Neuts (auto) 1.4 Absolute Nucleated RBC 0.000 Nucleated RBC % 0.0 PT 20.4 H INR 1.8 Sodium 137 Potassium 3.9 Chloride 109 H Carbon Dioxide 23 Anion Gap 5 BUN 10 Creatinine 0.69 L Estim Creat Clear Calc 96 Estimated GFR > 60 Glucose 90 Calcium 7.6 L Total Bilirubin 6.1 H GGT AST 921 H ALT 519 H Alkaline Phosphatase 121 Total Protein 9.7 H Albumin 2.9 L Ceruloplasmin Mitochondria M2 Ab Actin IgG Antibody CMV IgG Ab CMV IgM Ab HSV1 IgG Type-Specific Ab HSV2 IgG Type-Specific Ab Quality VTE Prophylaxis VTE prophylaxis: mechanical ordered
[2025-03-21 15:09] LABS: EBV Nuclear Antigen Ab, IgG <18.0 U/mL (0.0-17.9)
--- NOTE | 2025-03-21 17:32 | P.PNGI_ITS ---
Progress Note: A&P Assessment and Plan (1) Jaundice: Code(s): R17 - Unspecified jaundice Status: Acute Assessment and Plan: work up in progress to assess if arielle, aih, pbc, etc hepatitis, hiv negative also pending hsv,ebv, cmv will get liver biopsy tomorrow, patient and family agreeable this has been going on for 3 months doppler ultrasound negative for clots or budd chiari (2) RUQ pain: Code(s): R10.11 - Right upper quadrant pain Status: Acute (3) Elevated liver enzymes: Code(s): R74.8 - Abnormal levels of other serum enzymes Status: Acute (4) Pancytopenia: Code(s): D61.818 - Other pancytopenia Status: Acute Assessment and Plan: could be related to liver/spleen abnormality will ask hematology to evaluate pending viral test Subjective Date/time seen: 03/21/25 17:32 Interval history: no major changes, she is comfortable Review of Systems Review of Systems: All systems reviewed & are unremarkable except as noted in HPI and below Exam Const: General: comfortable and no acute distress Other: , female, nontoxic appearance HENMT: Face/Nose/Sinus: Normal nares present Eyes: General: appearance normal, both eyes and all related structures Sclera: scleral abnormality (icteric) Pupils: Equal, round and reactive pupils present Neck: Neck: supple Resp: Effort & Inspection: normal respiratory effort Auscultation: clear to auscultation bilaterally Cardio: Rate: regular rate Rhythm: regular rhythm GI: GI Palp: Yes Soft to palpation Auscultation: normal bowel sounds Other: Abdomen soft, nondistended. Mild tenderness in the right upper quadrant/diffuse. Normoactive bowel sounds in all quadrants. Skin: Other: jaundice Neuro: Speech: normal speech Motor exam (neuro): 5/5 motor strength present throughout Other: A&O x4 Extrem: General: normal to inspection Psych: Mental Status: mental status grossly normal Affect: normal affect Other: Good insight and judgment, pleasant Objective Data Vital Signs Vital Signs: Vital Signs - 24 hr 03/20/25 20:30 03/20/25 21:42 03/21/25 06:00 Temperature 99.6 F 99.2 F Pulse Rate 81 81 63 Respiratory Rate 20 20 20 Blood Pressure 111/71 106/59 L Pulse Oximetry 98 98 99 Oxygen Delivery Room Air 03/21/25 14:00 Temperature 98.2 F Pulse Rate 79 Respiratory Rate 18 Blood Pressure 104/55 L Pulse Oximetry 99 Oxygen Delivery Intake/Output Intake/Output: Intake & Output 03/18/25 03/19/25 03/20/25 03/21/25 23:59 23:59 23:59 23:59 Intake Total 890 200 630 Balance 890 200 630 Meds/Results Medications: Active Medications Generic Name Dose Route Start Last Admin Trade Name Freq PRN Reason Stop Dose Admin Acetaminophen 650 mg 03/19/25 20:25 Acetaminophen 325 Mg Tablet PO Q6H PRN Mild Pain (1-3) or Fever Calcium Carbonate 200 mg 03/19/25 20:26 Calcium Carbonate (Tums) 500 Mg (200 Mg Elemental) PO Q6H PRN Indigestion Piperacillin Sod/Tazobactam 50 mls @ 100 mls/hr 03/19/25 21:00 03/21/25 15:21 Sod 3.375 gm/ Sodium Chloride IVPB Infused Q6H GAYLE Infusion Ondansetron HCl 4 mg 03/19/25 20:25 Ondansetron Inj 4 Mg/2 Ml Vial IV PUSH Q6H PRN Nausea And Vomiting Perflutren Lipid Microsphere 0 ml 03/19/25 20:24 Perflutren Lipid Microspheres 1.5 Ml Vial Diluted To 10 Ml Total Volume IV PUSH 03/22/25 20:24 ONCE PRN adequate visualization Protocol Radiology Results: ITS Impressions Abdomen/Pelvis CT 03/19/25 12:04 IMPRESSION: 1. Diffuse periportal edema in the liver which could be seen with hepatitis, ascending cholangitis, pyelonephritis, heart failure and aggressive volume resuscitation. 2. Minimal stranding at the tip the cecum and base of the appendix which measures up to 8-9 mm which raises some suspicion for but is not definitive for acute appendicitis. Dr. Izaguirre discussed this and the above findings with Dr. Abad at 12:10 PM. 3. Nonspecific splenomegaly measuring 17.1 cm craniocaudally. 4. T-shaped IUD in expected position within the anteverted uterus. Abdomen Ultrasound 03/19/25 12:32 IMPRESSION: normal limited abdominal ultrasound. MRCP 03/20/25 14:12 IMPRESSION: 1. Nonspecific periportal edema with differential as previously detailed. 2. Nonspecific splenomegaly measuring up to 16.7 cm and borderline dilation of the main portal vein measuring up to 1.4 cm, both findings which can be seen in setting of portal venous hypertension. Arterial/Peripheral Duplex 03/20/25 18:41 IMPRESSION: 1. Mildly dilated main portal vein which can be seen with portal venous hypertension. Otherwise normal duplex Doppler study of the hepatic and portal veins with normal directional flow and waveforms and no evident thrombosis. Labs Labs: Laboratory Results - last 24 hr 03/19/25 03/20/25 03/20/25 22:11 05:52 08:43 WBC RBC Hgb Hct MCV MCH MCHC RDW Plt Count MPV Immature Gran % (Auto) Neut % (Auto) Lymph % (Auto) [place] % (Auto) Eos % (Auto) Baso % (Auto) Lymph # (Auto) [place] # (Auto) Eos # (Auto) Baso # (Auto) Abs Immat Gran (auto) Absolute Neuts (auto) Absolute Nucleated RBC Nucleated RBC % PT INR Sodium Potassium Chloride Carbon Dioxide Anion Gap BUN Creatinine Estim Creat Clear Calc Estimated GFR Glucose Calcium Total Bilirubin GGT 80 H AST ALT Alkaline Phosphatase Total Protein Albumin Ceruloplasmin Mitochondria M2 Ab <20.0 Actin IgG Antibody CMV IgG Ab 0.63 H CMV IgM Ab <30.0 EBV Capsid Ag IgG Ab 213.0 H EBV Capsid Ag IgM Ab 45.8 H EBV Nuclear Antigen Ab <18.0 EBV Interpretation Comment HSV1 IgG Type-Specific Ab Non reactive HSV2 IgG Type-Specific Ab Non reactive 03/20/25 03/21/25 03/21/25 08:44 05:47 12:39 WBC 2.9 L RBC 2.83 L Hgb 9.6 L Hct 28.8 L MCV 101.8 H MCH 33.9 MCHC 33.3 RDW 15.9 H Plt Count 110 L MPV 9.9 Immature Gran % (Auto) 0.0 Neut % (Auto) 49.1 Lymph % (Auto) 30.0 [place] % (Auto) 11.5 H Eos % (Auto) 8.4 H Baso % (Auto) 1.0 Lymph # (Auto) 0.86 L [place] # (Auto) 0.3 Eos # (Auto) 0.2 Baso # (Auto) 0.0 Abs Immat Gran (auto) 0.00 Absolute Neuts (auto) 1.4 Absolute Nucleated RBC 0.000 Nucleated RBC % 0.0 PT 20.4 H INR 1.8 Sodium 137 Potassium 3.9 Chloride 109 H Carbon Dioxide 23 Anion Gap 5 BUN 10 Creatinine 0.69 L Estim Creat Clear Calc 96 Estimated GFR > 60 Glucose 90 Calcium 7.6 L Total Bilirubin 6.1 H GGT AST 921 H ALT 519 H Alkaline Phosphatase 121 Total Protein 9.7 H Albumin 2.9 L Ceruloplasmin 16.3 L Mitochondria M2 Ab Actin IgG Antibody 130 H CMV IgG Ab CMV IgM Ab EBV Capsid Ag IgG Ab EBV Capsid Ag IgM Ab EBV Nuclear Antigen Ab EBV Interpretation HSV1 IgG Type-Specific Ab HSV2 IgG Type-Specific Ab
[2025-03-21 20:27] VITALS: BP 108/65; PULSE 83; RESP 14; TEMP 36.3; O2SAT 100
[2025-03-22] MEDS: PIPERACILLIN/TAZOBACTAM SOD 3.375 GM in SODIUM CHLORIDE 0.9% IV 50 ML 100 ML IVPB ×2 (02:39→09:09)
[2025-03-22 04:27] VITALS: BP 99/54; PULSE 74; RESP 16; TEMP 36.3; O2SAT 94
[2025-03-22 06:08] LABS: Hematocrit 31.9 % (37.0-47.0); Hemoglobin 10.3 g/dL (12.0-15.0); Immature Granulocyte Percent A 0.0 % (0-0.5); Lymphocytes Absolute Auto 0.95 K/mm3 (0.9-3.2); Mean Corpuscular HGB Conc 32.3 g/dl (32-36); Mean Corpuscular Hemoglobin 33.9 pg (26-34); Mean Corpuscular Volume 104.9 fl (80-100); Nucleated Red Blood Cells Absolute Auto 0.000 K/mm3 (0.0-0.012); Nucleated Red Blood Cells Perc 0.0 % (0.0-0.2); Platelet Count Result 116 k/mm3 (150-375); Red Blood Count 3.04 M/mm3 (4.2-5.4); White Blood Count 3.0 K/mm3 (4.5-10.0)
[2025-03-22 06:36] LABS: Alanine Aminotransferase 552 U/L (6-35); Albumin Level 2.9 g/dL (3.5-5.1); Alkaline Phosphatase 115 U/L (38-126); Anion Gap 4 mmol/L (4-12); Bilirubin,Total 6.8 mg/dL (0.2-1.3); Blood Urea Nitrogen 8 mg/dL (7-17); Calcium 7.9 mg/dL (8.4-10.2); Carbon Dioxide 22 mmol/L (22-30); Chloride 111 mmol/L (98-107); Estimated CRCL calculation 89 ml/min; Estimated Glomerular Filt Rate > 60; Glucose 87 mg/dL (65-110); Potassium 4.5 mmol/L (3.4-5.0); Sodium 137 mmol/L (137-145); Total Protein 9.7 g/dL (6.3-8.2)
[2025-03-22 06:54] LABS: Aspartate Amino Transferase 1061 U/L (14-36)
[2025-03-22 09:21] LABS: ANA by IFA Rfx Titer/Pattern Positive (.)
--- NOTE | 2025-03-22 13:19 | P.PNIM_ITS ---
Progress Note: A&P Assessment and Plan (1) Elevated bilirubin: Code(s): R17 - Unspecified jaundice Status: Acute Assessment and Plan: CT abd/pelvis: 1. Diffuse periportal edema in the liver which could be seen with hepatitis, ascending cholangitis, pyelonephritis, heart failure and aggressive volume resuscitation. 2. Minimal stranding at the tip the cecum and base of the appendix which measures up to 8-9 mm which raises some suspicion for but is not definitive for acute appendicitis. 3. Nonspecific splenomegaly measuring 17.1 cm craniocaudally. concern for Viral/autoimmune induced hepatitis vs Cholangitis vs biliary obstruction vs CHF vs thrombus vs Budd Chiari - check hepatitis panel -> negative -, CMV, RENO, HIV, ferritin, and HSV EBV positive - started on Zosyn on 03/19, changed to DOxy 03/22 MRCP:Nonspecific periportal edema,portal venous hypertension liver enzymes getting slightly worse. Doppler showed Mildly dilated main portal vein which can be seen with portal venous hypertension. Otherwise normal duplex Doppler stud. no evident thrombosis. Echo showed G1D no significant abnormality. Will follw GI team rec (2) Pancytopenia: Code(s): D61.818 - Other pancytopenia Status: Acute Assessment and Plan: liver failure, splenomegaly EBV positive - differential includes CMV, HSV - monitor hematology team has been consulted Plan Diet: regular, GI Prophylaxis: NA DVT Prophylaxis: SCDs IV fluids: Lines/Tubes: Peripheral IV Code Status: Full code Subjective Date/time seen: 03/22/25 13:19 Interval history: per Hpi: 19 y/o F with no significant PMH presents here with skin changes and abdominal pain. The patient presents here from home for further evaluation of yellowing of the skin and abdominal pain. She reports she noted that she has had skin changes and changes to her or sclera coloring over the last 3 to 4 months. Patient then developed intermittent right upper quadrant abdominal pain in the last month. This is accompanied by fatigue and nausea without vomiting. She describes the abdominal pain as sharp, upper right abdominal pain, radiation into her lower abdomen, intermittent with episodes lasting around 5 minutes, and no modifying factors patient is aware of. Has been taking Advil for the pain. She denies accompanying constipation, diarrhea, fever, chills, abdominal bloating. Denies history of IVDU or international travel. Initial VS at presentation: 98.3? F, HR 97, R 16, 132/81, and 100% on RA. ED workup showed: WBC 3.8, hemoglobin 10.0, platelet count 127, creatinine 0.65 and GFR >60, total bilirubin 6.6, AST 926, ALT 964, alk-phos 140, lipase 309, UA showed 2+ bilirubin otherwise unremarkable. CT showed diffuse periportal edema the liver which could be seen with hepatitis/ascending cholangitis/pyelonephritis/heart failure and aggressive volume resuscitation, minimal stranding at the tip of the cecum base of the appendix which raises some suspicion for acute appendicitis, nonspecific splenomegaly measuring 17.1 cm, and T shaped IUD in expected position. Abdominal US showed no stones/sludge/gallbladder thickening and negative Iyer sign 03/20/25 Patient was seen and examined at bedside. she is feeling better. denies chest pain, SOB, N/V. has intermittent shooting abd pain in RUQ. WBC 2.9, Plt 125, Hb 10.5, AST 937, ALT 541, ALKp 125 MRCP:Nonspecific periportal edema,portal venous hypertension ECho pending Will follow pending lab results. follow GI team recs 03/21/25 Patient was seen and examined at bedside. she is feeling batter. denies chest pain. continue to have intermittent abd pain. WBC 2.9, Hb 9.6. liver enzymes getting slightly better. Doppler showed Mildly dilated main portal vein which can be seen with portal venous hypertension. Otherwise normal duplex Doppler stud. no evident throm bosis. Echo showed G1D no significant abnormality. Will follw GI team recs. 03/22/25 Patient was seen and examined at bedside. she is feeling better. her abd pain is better. denies any chest pain, SOB, N/V. plan for liver biopsy but IR not available. EBV came back positive. discussed with pharmacy ABx changed to Doxycycline Review of Systems Review of Systems: All systems reviewed & are unremarkable except as noted in HPI and below Exam Const: General: comfortable and no acute distress Other: , female, nontoxic appearance HENMT: Face/Nose/Sinus: Normal nares present Mouth: Yes moist mucous membranes Eyes: General: appearance normal, both eyes and all related structures Sclera: sclerae normal Pupils: Equal, round and reactive pupils present EOM: EOMs intact bilaterally Resp: Effort & Inspection: normal respiratory effort Auscultation: clear to auscultation bilaterally Cardio: Rate: regular rate Rhythm: regular rhythm Other: S1-S2 present without murmur, rub, ectopy GI: Other: Abdomen soft, nondistended. Mild tenderness in the right upper jazmin drant/diffuse. Normoactive bowel sounds in all quadrants. Skin: General skin exam: normal color and no rashes or lesions noted Wounds: no wounds Neuro: Cranial nerves: Yes Equal, round and reactive pupils present Speech: normal speech Motor exam (neuro): 5/5 motor strength present throughout Sensory Exam: normal sensation Other: A&O x4 Extrem: General: normal to inspection Psych: Mental Status: mental status grossly normal Affect: normal affect Other: Good insight and judgment, pleasant Objective Data Vital Signs Vital Signs: Vital Signs - 24 hr 03/21/25 14:00 03/21/25 20:27 03/22/25 04:27 Temperature 98.2 F 97.4 F L 97.3 F L Pulse Rate 79 83 74 Respiratory Rate 18 14 16 Blood Pressure 104/55 L 108/65 99/54 L Pulse Oximetry 99 100 94 Intake/Output Intake/Output: Intake & Output 03/19/25 03/20/25 03/21/25 03/22/25 23:59 23:59 23:59 23:59 Intake Total 890 200 920 960 Balance 890 200 920 960 Meds/Results Medications: Active Medications Generic Name Dose Route Start Last Admin Trade Name Freq PRN Reason Stop Dose Admin Acetaminophen 650 mg 03/19/25 20:25 Acetaminophen 325 Mg Tablet PO Q6H PRN Mild Pain (1-3) or Fever Calcium Carbonate 200 mg 03/19/25 20:26 Calcium Carbonate (Tums) 500 Mg (200 Mg Elemental) PO Q6H PRN Indigestion Doxycycline Hyclate 100 mg 03/22/25 11:30 Doxycycline Hyclate 100 Mg Tablet PO 04/04/25 21:01 Q12HR GAYLE Ondansetron HCl 4 mg 03/19/25 20:25 Ondansetron Inj 4 Mg/2 Ml Vial IV PUSH Q6H PRN Nausea And Vomiting Perflutren Lipid Microsphere 0 ml 03/19/25 20:24 Perflutren Lipid Microspheres 1.5 Ml Vial Diluted To 10 Ml Total Volume IV PUSH 03/22/25 20:24 ONCE PRN adequate visualization Protocol Radiology Results: ITS Impressions Abdomen/Pelvis CT 03/19/25 12:04 IMPRESSION: 1. Diffuse periportal edema in the liver which could be seen with hepatitis, ascending cholangitis, pyelonephritis, heart failure and aggressive volume resuscitation. 2. Minimal stranding at the tip the cecum and base of the appendix which measures up to 8-9 mm which raises some suspicion for but is not definitive for acute appendicitis. Dr. Izaguirre discussed this and the above findings with Dr. Abad at 12:10 PM. 3. Nonspecific splenomegaly measuring 17.1 cm craniocaudally. 4. T-shaped IUD in expected position within the anteverted uterus. Abdomen Ultrasound 03/19/25 12:32 IMPRESSION: normal limited abdominal ultrasound. MRCP 03/20/25 14:12 IMPRESSION: 1. Nonspecific periportal edema with differential as previously detailed. 2. Nonspecific splenomegaly measuring up to 16.7 cm and borderline dilation of the main portal vein measuring up to 1.4 cm, both findings which can be seen in setting of portal venous hypertension. Arterial/Peripheral Duplex 03/20/25 18:41 IMPRESSION: 1. Mildly dilated main portal vein which can be seen with portal venous hypertension. Otherwise normal duplex Doppler study of the hepatic and portal veins with normal directional flow and waveforms and no evident thrombosis. Labs Labs: Laboratory Results - last 24 hr 03/20/25 03/20/25 03/20/25 05:52 08:43 08:44 WBC RBC Hgb Hct MCV MCH MCHC RDW Plt Count MPV Immature Gran % (Auto) Neut % (Auto) Lymph % (Auto) [place] % (Auto) Eos % (Auto) Baso % (Auto) Lymph # (Auto) [place] # (Auto) Eos # (Auto) Baso # (Auto) Abs Immat Gran (auto) Absolute Neuts (auto) Absolute Nucleated RBC Nucleated RBC % Sodium Potassium Chloride Carbon Dioxide Anion Gap BUN Creatinine Estim Creat Clear Calc Estimated GFR Glucose Calcium Total Bilirubin AST ALT Alkaline Phosphatase Total Protein Albumin RENO Screen Positive A RENO Homogeneous Pattern 1:640 H RENO Comment Comment Mitochondria M2 Ab <20.0 Actin IgG Antibody 130 H EBV Capsid Ag IgG Ab 213.0 H EBV Capsid Ag IgM Ab 45.8 H EBV Nuclear Antigen Ab <18.0 EBV Interpretation Comment 03/22/25 05:50 WBC 3.0 L RBC 3.04 L Hgb 10.3 L Hct 31.9 L MCV 104.9 H MCH 33.9 MCHC 32.3 RDW 15.7 H Plt Count 116 L MPV 10.3 Immature Gran % (Auto) 0.0 Neut % (Auto) 47.0 Lymph % (Auto) 31.9 [place] % (Auto) 10.7 H Eos % (Auto) 9.4 H Baso % (Auto) 1.0 Lymph # (Auto) 0.95 [place] # (Auto) 0.3 Eos # (Auto) 0.3 Baso # (Auto) 0.0 Abs Immat Gran (auto) 0.00 Absolute Neuts (auto) 1.4 Absolute Nucleated RBC 0.000 Nucleated RBC % 0.0 Sodium 137 Potassium 4.5 Chloride 111 H Carbon Dioxide 22 Anion Gap 4 BUN 8 Creatinine 0.75 Estim Creat Clear Calc 89 Estimated GFR > 60 Glucose 87 Calcium 7.9 L Total Bilirubin 6.8 H AST 1061 H ALT 552 H Alkaline Phosphatase 115 Total Protein 9.7 H Albumin 2.9 L RENO Screen RENO Homogeneous Pattern RENO Comment Mitochondria M2 Ab Actin IgG Antibody EBV Capsid Ag IgG Ab EBV Capsid Ag IgM Ab EBV Nuclear Antigen Ab EBV Interpretation Quality VTE Prophylaxis VTE prophylaxis: mechanical ordered
[2025-03-22 14:00] VITALS: BP 111/58; PULSE 80; RESP 14; O2SAT 98
--- NOTE | 2025-03-22 17:33 | WPDGIPROGNO ---
Progress Note: A&P Assessment and Plan (1) Jaundice: Code(s): R17 - Unspecified jaundice Status: Acute Assessment and Plan: some of blood work back- elevated isabel and actin-igg, also noted EBV IGG/IGM positive ? reactivation most likely she has AIH, she will need liver biopsy but radiologist is out of town and coming back next week probably she can go home tomorrow and will arrange liver biopsy as outpatient then follow-up the week after her biopsy in office to discuss findings and possible treatment if indeed she has AIH (probably steroids with azathioprine- will check also TPMT level) hepatitis, hiv negative doppler ultrasound negative for clots or budd chiari (2) RUQ pain: Code(s): R10.11 - Right upper quadrant pain Status: Acute Assessment and Plan: stable (3) Elevated liver enzymes: Code(s): R74.8 - Abnormal levels of other serum enzymes Status: Acute Assessment and Plan: elevated, disease for almost 3 months (4) Pancytopenia: Code(s): D61.818 - Other pancytopenia Status: Acute Assessment and Plan: could be related to liver/spleen abnormality Subjective Date/time seen: 03/22/25 17:33 Interval history: similar mild discomfort ruq no changes family members at bedside she told me that had mononucleosis in 2020 Review of Systems Review of Systems: All systems reviewed & are unremarkable except as noted in HPI and below Exam Const: General: comfortable and no acute distress Other: , female, nontoxic appearance HENMT: Face/Nose/Sinus: Normal nares present Eyes: General: appearance normal, both eyes and all related structures Sclera: scleral abnormality (icteric) Pupils: Equal, round and reactive pupils present Neck: Neck: supple Resp: Effort & Inspection: normal respiratory effort Auscultation: clear to auscultation bilaterally Cardio: Rate: regular rate Rhythm: regular rhythm GI: GI Palp: Yes Soft to palpation Auscultation: normal bowel sounds Other: Abdomen soft, nondistended. Mild tenderness in the right upper quadrant/diffuse. Normoactive bowel sounds in all quadrants. Skin: Other: jaundice Neuro: Speech: normal speech Motor exam (neuro): 5/5 motor strength present throughout Other: A&O x4 Extrem: General: normal to inspection Psych: Mental Status: mental status grossly normal Affect: normal affect Other: Good insight and judgment, pleasant Objective Data Vital Signs Vital Signs: Vital Signs - 24 hr 03/21/25 20:27 03/22/25 04:27 03/22/25 08:00 Temperature 97.4 F L 97.3 F L Pulse Rate 83 74 Respiratory Rate 14 16 Blood Pressure 108/65 99/54 L Pulse Oximetry 100 94 Oxygen Delivery Room Air 03/22/25 14:00 Temperature Pulse Rate 80 Respiratory Rate 14 Blood Pressure 111/58 L Pulse Oximetry 98 Oxygen Delivery Intake/Output Intake/Output: Intake & Output 03/19/25 03/20/25 03/21/25 03/22/25 23:59 23:59 23:59 23:59 Intake Total 890 311 301 5460 Balance 890 485 134 9177 Meds/Results Medications: Active Medications Generic Name Dose Route Start Last Admin Trade Name Freq PRN Reason Stop Dose Admin Acetaminophen 650 mg 03/19/25 20:25 Acetaminophen 325 Mg Tablet PO Q6H PRN Mild Pain (1-3) or Fever Calcium Carbonate 200 mg 03/19/25 20:26 Calcium Carbonate (Tums) 500 Mg (200 Mg Elemental) PO Q6H PRN Indigestion Ondansetron HCl 4 mg 03/19/25 20:25 Ondansetron Inj 4 Mg/2 Ml Vial IV PUSH Q6H PRN Nausea And Vomiting Perflutren Lipid Microsphere 0 ml 03/19/25 20:24 Perflutren Lipid Microspheres 1.5 Ml Vial Diluted To 10 Ml Total Volume IV PUSH 03/22/25 20:24 ONCE PRN adequate visualization Protocol Radiology Results: ITS Impressions Abdomen/Pelvis CT 03/19/25 12:04 IMPRESSION: 1. Diffuse periportal edema in the liver which could be seen with hepatitis, ascending cholangitis, pyelonephritis, heart failure and aggressive volume resuscitation. 2. Minimal stranding at the tip the cecum and base of the appendix which measures up to 8-9 mm which raises some suspicion for but is not definitive for acute appendicitis. Dr. Izaguirre discussed this and the above findings with Dr. Abad at 12:10 PM. 3. Nonspecific splenomegaly measuring 17.1 cm craniocaudally. 4. T-shaped IUD in expected position within the anteverted uterus. Abdomen Ultrasound 03/19/25 12:32 IMPRESSION: normal limited abdominal ultrasound. MRCP 03/20/25 14:12 IMPRESSION: 1. Nonspecific periportal edema with differential as previously detailed. 2. Nonspecific splenomegaly measuring up to 16.7 cm and borderline dilation of the main portal vein measuring up to 1.4 cm, both findings which can be seen in setting of portal venous hypertension. Arterial/Peripheral Duplex 03/20/25 18:41 IMPRESSION: 1. Mildly dilated main portal vein which can be seen with portal venous hypertension. Otherwise normal duplex Doppler study of the hepatic and portal veins with normal directional flow and waveforms and no evident thrombosis. Labs Labs: Laboratory Results - last 24 hr 03/20/25 03/21/25 03/22/25 08:43 05:47 05:50 WBC 3.0 L RBC 3.04 L Hgb 10.3 L Hct 31.9 L MCV 104.9 H MCH 33.9 MCHC 32.3 RDW 15.7 H Plt Count 116 L MPV 10.3 Immature Gran % (Auto) 0.0 Neut % (Auto) 47.0 Lymph % (Auto) 31.9 [place] % (Auto) 10.7 H Eos % (Auto) 9.4 H Baso % (Auto) 1.0 Lymph # (Auto) 0.95 [place] # (Auto) 0.3 Eos # (Auto) 0.3 Baso # (Auto) 0.0 Abs Immat Gran (auto) 0.00 Absolute Neuts (auto) 1.4 Absolute Nucleated RBC 0.000 Nucleated RBC % 0.0 Sodium 137 Potassium 4.5 Chloride 111 H Carbon Dioxide 22 Anion Gap 4 BUN 8 Creatinine 0.75 Estim Creat Clear Calc 89 Estimated GFR > 60 Glucose 87 Calcium 7.9 L Total Bilirubin 6.8 H AST 1061 H ALT 552 H Alkaline Phosphatase 115 Total Protein 9.7 H Albumin 2.9 L ISABEL Screen Positive A ISABEL Homogeneous Pattern 1:640 H ISABEL Comment Comment Livr/Kid Microsome 1 Ab <1.0
[2025-03-22 22:00] VITALS: BP 110/64; PULSE 71; RESP 18; TEMP 36.4; O2SAT 100
[2025-03-23 06:00] VITALS: BP 114/62; PULSE 67; RESP 18; TEMP 36.9; O2SAT 99
[2025-03-23 06:21] LABS: Hematocrit 30.4 % (37.0-47.0); Hemoglobin 9.9 g/dL (12.0-15.0); Immature Granulocyte Percent A 0.0 % (0-0.5); Immature Platelet Fraction Pct 1.9 % (0.9-11.2); Lymphocytes Absolute Auto 1.05 K/mm3 (0.9-3.2); Mean Corpuscular HGB Conc 32.6 g/dl (32-36); Mean Corpuscular Hemoglobin 33.7 pg (26-34); Mean Corpuscular Volume 103.4 fl (80-100); Nucleated Red Blood Cells Absolute Auto 0.000 K/mm3 (0.0-0.012); Nucleated Red Blood Cells Perc 0.0 % (0.0-0.2); Platelet Count Result 119 k/mm3 (150-375); Red Blood Count 2.94 M/mm3 (4.2-5.4); White Blood Count 3.0 K/mm3 (4.5-10.0)
[2025-03-23 06:43] LABS: Alanine Aminotransferase 546 U/L (6-35); Albumin Level 3.0 g/dL (3.5-5.1); Alkaline Phosphatase 126 U/L (38-126); Anion Gap 6 mmol/L (4-12); Bilirubin,Total 5.7 mg/dL (0.2-1.3); Blood Urea Nitrogen 9 mg/dL (7-17); Calcium 8.0 mg/dL (8.4-10.2); Carbon Dioxide 22 mmol/L (22-30); Chloride 111 mmol/L (98-107); Estimated CRCL calculation 101 ml/min; Estimated Glomerular Filt Rate > 60; Glucose 97 mg/dL (65-110); Potassium 4.7 mmol/L (3.4-5.0); Sodium 139 mmol/L (137-145); Total Protein 9.7 g/dL (6.3-8.2)
[2025-03-23 06:53] LABS: Schistocytes None Seen
[2025-03-23 07:12] LABS: Aspartate Amino Transferase 1021 U/L (14-36)
[2025-04-03 08:08] LABS: Comment Notes (.); Interpretation Notes (.)
--- NOTE | 2025-04-05 16:12 | PM.DS ---
DS: Admitting Diagnosis Discharge Date 03/23/25 Admitting Diagnosis elevated liver enzyme DS: Discharge Diagnosis Discharge Diagnosis (1) Elevated bilirubin: Code(s): R17 - Unspecified jaundice Status: Acute Assessment and Plan: CT abd/pelvis: 1. Diffuse periportal edema in the liver which could be seen with hepatitis, ascending cholangitis, pyelonephritis, heart failure and aggressive volume resuscitation. 2. Minimal stranding at the tip the cecum and base of the appendix which measures up to 8-9 mm which raises some suspicion for but is not definitive for acute appendicitis. 3. Nonspecific splenomegaly measuring 17.1 cm craniocaudally. concern for Viral/autoimmune induced hepatitis vs Cholangitis vs biliary obstruction vs CHF vs thrombus vs Budd Chiari - check hepatitis panel -> negative -, CMV, RENO, HIV, ferritin, and HSV EBV positive - started on Zosyn on 03/19, changed to DOxy 03/22. MRCP:Nonspecific periportal edema,portal venous hypertension liver enzymes getting slightly worse. Doppler showed Mildly dilated main portal vein which can be seen with portal venous hypertension. Otherwise normal duplex Doppler stud. no evident thrombosis. Echo showed G1D no significant abnormality. per gi:'she can go home tomorrow and will arrange liver biopsy as outpatient then follow-up the week after her biopsy in office to discuss findings and possible treatment if indeed she has AIH (probably steroids with azathioprine- will check also TPMT level) (2) Pancytopenia: Code(s): D61.818 - Other pancytopenia Status: Acute Assessment and Plan: liver failure, splenomegaly EBV positive - differential includes CMV, HSV - monitor hematology team has been consulted Plan Diet: regular, GI Prophylaxis: NA DVT Prophylaxis: SCDs IV fluids: Lines/Tubes: Peripheral IV Code Status: Full code DS: Summary Hospital Course Hospital Course: per Hpi: 19 y/o F with no significant PMH presents here with skin changes and abdominal pain. The patient presents here from home for further evaluation of yellowing of the skin and abdominal pain. She reports she noted that she has had skin changes and changes to her or sclera coloring over the last 3 to 4 months. Patient then developed intermittent right upper quadrant abdominal pain in the last month. This is accompanied by fatigue and nausea without vomiting. She describes the abdominal pain as sharp, upper right abdominal pain, radiation into her lower abdomen, intermittent with episodes lasting around 5 minutes, and no modifying factors patient is aware of. Has been taking Advil for the pain. She denies accompanying constipation, diarrhea, fever, chills, abdominal bloating. Denies history of IVDU or international travel. Initial VS at presentation: 98.3? F, HR 97, R 16, 132/81, and 100% on RA. ED workup showed: WBC 3.8, hemoglobin 10.0, platelet count 127, creatinine 0.65 and GFR >60, total bilirubin 6.6, AST 926, ALT 964, alk-phos 140, lipase 309, UA showed 2+ bilirubin otherwise unremarkable. CT showed diffuse periportal edema the liver which could be seen with hepatitis/ascending cholangitis/pyelonephritis/heart failure and aggressive volume resuscitation, minimal stranding at the tip of the cecum base of the appendix which raises some suspicion for acute appendicitis, nonspecific splenomegaly measuring 17.1 cm, and T shaped IUD in expected position. Abdominal US showed no stones/sludge/gallbladder thickening and negative Iyer sign 03/20/25 Patient was seen and examined at bedside. she is feeling better. denies chest pain, SOB, N/V. has intermittent shooting abd pain in RUQ. WBC 2.9, Plt 125, Hb 10.5, AST 937, ALT 541, ALKp 125 MRCP:Nonspecific periportal edema,portal venous hypertension ECho pending Will follow pending lab results. follow GI team recs 03/21/25 Patient was seen and examined at bedside. she is feeling batter. denies chest pain. continue to have intermittent abd pain. WBC 2.9, Hb 9.6. liver enzymes getting slightly better. Doppler showed Mildly dilated main portal vein which can be seen with portal venous hypertension. Otherwise normal duplex Doppler stud. no evident thrombosis. Echo showed G1D no significant abnormality. 03/22/25. plan for liver biopsy but IR not available. EBV came back positive. discussed with pharmacy ABx changed to Doxycycline 03/23/25 Patient was seen and examined at bedside. she is feeling better. her abd pain is better. denies any chest pain, SOB, N/V Gi team on board. patient can go home and follow with biopsy as outpatient Status at Discharge Overall status at discharge: patient is progressing back to baseline Time Spent with Patient Time attestation: Total time spent providing and/or coordinating discharge services: Time spent: Greater than 30 minutes Exam Const: General: comfortable and no acute distress Other: , female, nontoxic appearance HENMT: Face/Nose/Sinus: Normal nares present Mouth: Yes moist mucous membranes Eyes: General: appearance normal, both eyes and all related structures Sclera: sclerae normal Pupils: Equal, round and reactive pupils present EOM: EOMs intact bilaterally Resp: Effort & Inspection: normal respiratory effort Auscultation: clear to auscultation bilaterally Cardio: Rate: regular rate Rhythm: regular rhythm Other: S1-S2 present without murmur, rub, ectopy GI: Other: Abdomen soft, nondistended. Mild tenderness in the right upper quadrant/diffuse. Normoactive bowel sounds in all quadrants. Skin: General skin exam: normal color and no rashes or lesions noted Wounds: no wounds Neuro: Cranial nerves: Yes Equal, round and reactive pupils present Speech: normal speech Motor exam (neuro): 5/5 motor strength present throughout Sensory Exam: normal sensation Other: A&O x4 Extrem: General: normal to inspection Psych: Mental Status: mental status grossly normal Affect: normal affect Other: Good insight and judgment, pleasant Discharge Plan Discharge Attending physician on discharge: Pau Cedeno Consulting providers: Walter Harvey; Pau Cedeno; Jeffy Santana; Madelyn Baugh; Minerva Noble; Stephie Sweeney; John Saul; Alfredo Izaguirre; Gallito,Carlos Webster Discharging Clinician: Pau Cedeno Anticipated Discharge Date/Time: 03/23/25 10:36 Patient Disposition: Home Activity: as tolerated Diet: as tolerated Discharge Instructions: follow with liver biopsy as outpatient then follow-up the week after her biopsy in GI office Walter Taylor follow with PCP in one week. repeat blood test next week Patient Instructions: Antibiotic Form Patient Language: Tajik Stand Alone Forms: General Discharge Information Follow-up/Referrals: Prabha Jaime MD [Primary Care Provider] - 1 Week Walter Harvey MD [Physician] - Call for Appointment Other Ambulatory Orders: US biopsy liver (Routine) Timeframe: 1 Week Facility: [facility] - Location: [facility] Ordered By: Walter Harvey Date of admission: 03/22/25 14:07 Primary Care Provider: Prabha Jaime Admitting Provider: Finn Aly Attending physician on admission: Pau Cedeno Condition: Stable Quality VTE Prophylaxis VTE prophylaxis: mechanical ordered
== END 2025-03-23 13:25 | disposition home or self-care (01) | DRG 442 ==
LOC: ANHED 14:24 → ANH3MEDSUR 14:59
PROVIDERS: Internal Medicine Gastroenterology; Nurse Practitioner Family; Student in an Organized Health Care Education/Training Program; Admitting Provider Internal Medicine; Emergency Provider Nurse Practitioner Family; PCP Pediatrics; Visit Provider Internal Medicine
DX: R17 Unspecified jaundice (principal); D61.818 Other pancytopenia; R74.8 Abnormal levels of other serum enzymes; K21.9 Gastro-esophageal reflux disease without esophagitis; F41.9 Anxiety disorder, unspecified; F90.9 Attention-deficit hyperactivity disorder, unspecified type; E05.90 Thyrotoxicosis, unspecified without thyrotoxic crisis or storm
CPT/HCPCS: 36415; 74177; 74183; 76376; 76705; 80053; 80061; 80074; 81001; 81025; 82248; 82390; 82607; 82728; 82746; 82977; 83540; 83550; 83690; 83880; 84443; 85025; 85055; 85610; 86015; 86038; 86308; 86376; 86381; 86618; 86644; 86645; 86664; 86665; 86666; 86695; 86696; 86703; 86790; 87040; 93306; 93976; 96365; 96375; 99285; A9577; G0378; G0432; J2543; J7120; Q9967